=== PATIENT | male | born 1945 | race Hispanic/Latino ===

== ENCOUNTER 2017-07-13 08:23 | Inpatient (IN) | payer MEDICARE ==
[2017-07-13 08:52] VITALS: BMI 37.7
--- NOTE | 2017-07-13 09:07 | ED PDOC ---
Arrival/HPI - General Chief Complaint: Weakness/Neurological Deficit Time Seen by Provider: 07/13/17 08:59 Historian: Patient, Spouse, EMS, Other (cruise ship documentation) - History of Present Illness Narrative History of Present Illness (Text): 07/13/17 09:45 Patient is a 71 yo male presents from cruise ship for evaluation. History is supplemented by patient, his at bedside, EMS report, as well as review of provided documentation from cruise ship medical facility. states that patient has history of atrial fibrillation with ablation earlier this year, takes Xarelto. She reports that patient possibly has history of "some dementia" and has been getting evaluated by a neurologist in his hometown of [place], [place]. states that she drove with the patient from [place] to go on a cruise on June 29. She reports that the night of June 29, the patient "fell". and patient cannot describe circumstance of that fall. Patient and reported no injury. He did not go to the hospital for evaluation at that time reportedly. states that he did not pass out, and to her knowledge did not sustain any injuries at that time. They embarked on the cruise later that night and patient was "acting himself". The next day on the cruise ship, June 30, states that he had difficulty "cutting his meat" at the dining table, and he "needed help to use his knife which he usually doesn't have". She states that she did not notice any change in behavior or specific weakness at that time. States he was "walking normal" at that time. states the following day "we were sitting in one of the mineral pools" and he "had a tough time getting himself up" "which is unusual for him". She states that "the staff had to assist him with a wheelchair" to "get around the rest of the trip". states that he "fell many times" but can't describe how he fell, states that he "just goes down". states that she did not witness falls. Reportedly, she believes "Friday night", "I came back to room and he was laying on the ground and he couldn't get up." She states that he "might have been a little confused" . She states that she is uncertain how long he was on the ground for but he believes it was "all night". Patient states he has been falling but denies headache or specific weakness. Denies visual symptoms. Denies neck pain or abdominal pain. Denies dark or bloody stools. Denies palpitations. Patient reportedly was brought to the medical facility on the cruise ship on July 12 approximately 10 am. Patient reportedly was found by staff in his room with skin breakdown on right side of body and note patient to be weaker on the right sided. He was treated in medical facility of ship since yesterday with antibiotics and communicated concern for possible stroke, possible sepsis. Patient at this time denies pain or discomfort. Past Medical History - Infectious Disease Hx of Infectious Diseases: None - Cardiac Hx Atrial Fibrillation: Yes Hx Hypertension: Yes Other/Comment: Poss CHF per . - Pulmonary Hx Respiratory Disorders: No - Neurological Hx Neurological Disorder: No - HEENT Hx HEENT Disorder: No - Renal Hx Renal Disorder: No - Endocrine/Metabolic Hx Endocrine Disorders: No - Hematological/Oncological Hx Blood Disorders: No - Integumentary Hx Dermatological Disorder: No - Musculoskeletal/Rheumatological Hx Musculoskeletal Disorders: No - Gastrointestinal Hx Gastrointestinal Disorders: No - Genitourinary/Gynecological Hx Genitourinary Disorders: No - Psychiatric Hx Psychophysiologic Disorder: No Hx Substance Use: No Family/Social History Family/Social History: Unknown Family HX Smoking Status: Unknown If Ever Smoked Hx Alcohol Use: No Hx Substance Use: No Allergies/Home Meds Allergies/Adverse Reactions: Allergies nitroglycerin Allergy (Verified 07/13/17 10:55) ANGIOEDEMA Home Medications: Home Meds Medication Instructions Recorded Confirmed Amiodarone [Cordarone] 200 mg PO BID 07/13/17 07/13/17 Furosemide [Lasix] 20 mg PO DAILY 07/13/17 07/13/17 Metoprolol Tartrate [Lopressor] 25 mg PO BID 07/13/17 07/13/17 Rivaroxaban [Xarelto] 20 mg PO DAILY 07/13/17 07/13/17 Review of Systems - Review of Systems Systems not reviewed;Unavailable: Altered Mental Status Constitutional: Fatigue Eyes: absent: Vision Changes Respiratory: absent: SOB Cardiovascular: Edema. absent: Chest Pain Gastrointestinal: absent: Abdominal Pain Musculoskeletal: Other (right arm and leg pain) Neurological: Focal Weakness, Gait Changes, Facial Droop. absent: Headache, Dizziness, Speech Changes, Seizure Endocrine: absent: Polyuria Hemo/Lymphatic: absent: Easy Bleeding Physical Exam - Physical Exam Narrative Physical Exam (Text): 07/13/17 10:49 Head: Normocephalic. Right facial asymmetry with possible small contusion to right frontal scalp, no deformity or open wound noted. Eyes: Visual acuity grossly intact. Patient able to distinguish one and two fingers from 5 feet, able to track finger movements with eyes. ? limitation with lateral gaze but no orbital tenderness. Visual cote difficult to assess but appear grossly intact. Pupils equal, reactive but sluggish. ENT: Mucous membranes are dry. Oropharynx is clear and symmetric. No foregin body. No stridor. No pharyngeal erythema or edema. Neck: Supple. Full ROM. No JVD. No lymphadenopathy. No midline tenderness. No bruits auscultated. Cardiovascular: Regular rate. Regular rhythm. Systolic murmus is noted. Distal pulses in upper extremity or equal and palpable. Distal lower extremity pulses palpable. Pulmonary/Chest: No evidence of respiratory distress. Clear to auscultation bilaterally. No wheezing, rales or rhonchi. Chest wall nontender no crepitus. Abdominal: Soft but mildly distended. There is no tenderness. No rebound, guarding, or rigidity. No organomegaly palpated. No pulsatile masses. Rectal: brown heme negative stool Genitourinary: akers catheter in place Back: No CVA tenderness. There is skin edema to right lower back with erythema. No midline pain or deformity. Extremities: Patient with significant edema to right upper and lower extremities. There is large skin tear to right upper extremity. No active bleeding or foreign body. No clavicle or shoulder deformity. No bony elbow pain. No wrist deformity noted. There is edema to right lateral upper leg with blistering and erythema with soft tissue swelling, no crepitus or pus or drainage. No pain on direct palpation of hip, knee or ankle. There is bilateral leg edema noted. Skin: Edema with blistering to right lower extremity, lateral, soft tissue swelling also to right upper extremity with large skin tear. Neurological: Drowsy but easily arousable. Follows commands. Disoriented to place and time. Slow somewhat slurred speech. Weakness noted to right upper and lower extremity unable to lift off of bed. Grasp and strength appear intact to left upper extremity. No saddle anesthesia noted. Psychiatric: Poor eye contact. Flat affect. Vital Signs Reviewed: Yes Vital Signs Temp Pulse Resp BP Pulse Ox 07/13/17 12:51 98.6 F 93 H 17 106/59 L 98 07/13/17 11:53 93 H 17 106/69 98 07/13/17 08:52 98.5 F 93 H 17 113/60 98 07/13/17 08:33 98.3 F 90 24 113/60 95 Temperature: Afebrile Blood Pressure: Normal Pulse: Regular Respiratory Rate: Normal Appearance: Positive for: Ill-Appearing, Unkept Mental Status: Positive for: Confused Medical Decision Making ED Course and Treatment: 07/13/17 10:20 Patient presents to Emergency Department from [facility]. I extensively reviewed the documentation provided by [facility] and discussed the patient's history in length with patient's , who came with patient from [facility]. I also was provided some history by EMS personnel. The patient on exam is awake, answers some questions, although appears disoriented and sluggish. He is afebrile. He has no complaints although I feel due to patient's condition he is unreliable historian. Initial blood pressure is stable. Initial heart rate stable. No respiratory distress noted. He has obvious facial asymmetry, states she is not sure when this started or when this was noted. He has difficulty moving his right side, although there is skin breakdown and soft tissue swelling noted on the right sided. History is suggestive that patient was on the floor for several hours at some point recently, although states that she did find him "laying on the ground and he wouldn't get up" so she "just left him there I figured he could just spend the night on the floor". He reportedly was found by cruise staff laying on the ground, incontinent, right sided swelling, confused, and was transported to their medical facility. states they drove from [place], [place] on June 29, and patient "fell" that date. Reportedly he did not go to hospital. states "he was fine". Patient cannot describe this event to me. Since June 29, states "he was fine" but also reports that he had difficulty using utensils and walking. She states he was transported on the ship during the past two weeks "on a wheelchair" but "he was fine" although patient typically does not use a wheelchair and ambulates on his own. She denies any symptoms or illness prior to going on the cruise ship. Denies that he has been coughing, denies fevers, denies vomiting or diarrhea. She states he has "fallen many times" while on the cruise ship but she cannot describe how these events or occurring and cannot clarify what happened after each of these falls and when they occurred. She does report that he sees a neurologist in [place] for "maybe some dementia" but she states his current mental status is not typical. PROCEDURE: CT HEAD WITHOUT CONTRAST. Report Date : 07/13/2017 10:02:26 Medical Technologist Chief : Reinaldo Avila MD HISTORY:right sided weakness, on xarelto COMPARISON:None available. FINDINGS: HEMORRHAGE:No intracranial hemorrhage. BRAIN:No mass effect or edema. No atrophy or chronic microvascular ischemic changes. VENTRICLES:Unremarkable. No hydrocephalus. CALVARIUM:Unremarkable. PARANASAL SINUSES:Unremarkable as visualized. No significant inflammatory changes. MASTOID AIR CELLS:Unremarkable as visualized. No inflammatory changes. OTHER FINDINGS:None. IMPRESSION:No acute findings Limitations of CT were reviewed with patient and , I expressed my concern over multiple issues, including suspicion of underlying neurological disease including but not limited to cva, brain hemorrhage, as patient has been falling , not walking, and is weak on right side. Time of onset is unknown but he appears to have been exhibiting symptoms for two weeks. He is currently afebrile with unremarkable lactic and unremarkable WBC. When questioned, patient does answer and says he "feels fine". is not more specific on the circumstances of his falling on the cruise ship and reportedly medical attention at medical facility not obtained until July 12. He has skin breakdown suggestive of possible prolonged immobilization or time on ground. Large skin tear was cleansed and dressed in upper extremity. Patient had received iv antibiotics prior to arrival on cruise ship. and patient deny coughing, fevers, pain or discomfort. Again, I feel that he is unreliable historian although insistent that he has no cough/congestion fevers or illnesses that she noted. Influenza is positive. Precautions ordered. At this time, will admit for iv hydration given elevated CPK, rhabdomylosyis. Monitoring of renal function. Cardiac monitoring as patient with multiple falls. I discussed in laymen's terms with patient and suspicion for possible CVA, although not tpa candidate as patient with no known time of onset of symptoms and likely symptoms for several days. I have communicated with Dr. Di Mccloud, on-call physician, who accepts admission to his service and has evaluated patient in the emergency department. I have discussed case with Dr. Pierre Quijano, neurology air conditioner installer helper, and Dr. Chelly Mckenzie, ID given differential that includes infectious process/sepsis. All labs and imaging studies reviewed with patient and , need for CCU evaluation discussed with patient and family, will admit for serial exams and monitoring with consultations. 07/13/17 13:13 - Critical Care Critical Care Minutes: 30 minutes - Lab Interpretations Lab Results: 07/13/17 09:11 07/13/17 09:11 Lab Results 07/13/17 10:40: pCO2 35, pO2 77.0 L, HCO3 23.8, ABG pH 7.44, ABG Total CO2 24.9 , ABG O2 Saturation 97.2, ABG O2 Content 19.4, ABG Base Excess 0.1, ABG Hemoglobin 14.6, ABG Carboxyhemoglobin 1.6 H, POC ABG HHb (Measured) 2.7, ABG Methemoglobin 1.1, ABG O2 Capacity 20.0, Hgb O2 Saturation 94.6 L, FiO2 28.0 07/13/17 10:30: Blood Type Confirm O POSITIVE 07/13/17 09:16: Urine Color Yellow, Urine Appearance Clear, Urine pH 6.0, Ur Specific [place] >= 1.030, Urine Protein 100 H, Urine Glucose (UA) Negative, Urine Ketones 40 H, Urine Blood Large H, Urine Nitrate Negative, Urine Bilirubin Negative, Urine Urobilinogen 0.2, Ur Leukocyte Esterase Negative, Urine RBC Tntc, Urine WBC 1 - 3, Ur Epithelial Cells 1 - 3, Urine Bacteria Few 07/13/17 09:11: PT 16.7 H, INR 1.51 H, APTT 31.6 07/13/17 09:11: WBC 8.8, RBC 4.83, Hgb 14.7, Hct 43.5, MCV 90.1, MCH 30.4, MCHC 33.8, RDW 15.1 H, Plt Count 174, MPV 9.6, Gran % 78.3 H, Lymph % (Auto) 11.3 L, B[place] % (Auto) 10.1 H, Eos % (Auto) 0.1 L, Baso % (Auto) 0.2, Gran # 6.91 H, Lymph # 1.0 L, Banner # 0.9 H, Eos # 0.0, Baso # 0.02 07/13/17 09:11: Sodium 139, Chloride 106, Potassium 3.8, Carbon Dioxide 24, Anion Gap 13, BUN 26 H, Creatinine 1.1, Est GFR ( Amer) > 60, Est GFR ( Non-Af Amer) > 60, Random Glucose 101, Calcium 8.5, Magnesium 2.1, Total Bilirubin 0.9, AST 195 H, ALT 67 H, Alkaline Phosphatase 85, Lactate Dehydrogenase 1171 H, Total Creatine Kinase 9816 H, CK-MB (CK-2) 15.5 H, CK-MB ( CK-2) % 0.2 L, Troponin I 0.01, Total Protein 6.0, Albumin 3.4, Globulin 2.5, Albumin/Globulin Ratio 1.4 07/13/17 09:11: pO2 97 H, VBG pH 7.44 H, VBG pCO2 36.0 L, VBG HCO3 24.5, VBG Total CO2 25.6, VBG O2 Sat (Calc) 98.2 H, VBG Base Excess 0.6, VBG Potassium 3.7 , Sodium 137.0, Chloride 106.0, Glucose 99, Lactate 1.1, FiO2 21.0, Venous Blood Potassium 3.7 07/13/17 09:00: Blood Type O POSITIVE, Antibody Screen Negative, BBK History Checked No verified bt - RAD Interpretation Radiology Orders: 07/13/17 08:59 HEAD W/O CONTRAST [CT] Stat 07/13/17 09:00 CHEST PORTABLE [RAD] Stat 07/13/17 10:27 ELBOW RIGHT 3 VIEWS ROUTINE [RAD] Stat SHOULDER RIGHT [RAD] Stat 07/13/17 10:28 Hip Right [HIP MIN 2V W/ PELVIS RT] [RAD] Stat Preventive Maintenance Coordinator: Radiologist - EKG Interpretation EKG Interpretation (Text): EKG at 08:35 normal sinus rhythm rate of 91, left axis deviation Interpreted by ED Physician: Yes Type: 12 lead EKG - Medication Orders Current Medication Orders: Amiodarone HCl (Cordarone) 200 mg PO BID DAT Furosemide (Lasix) 40 mg IVP DAILY DAT Sodium Chloride (Sodium Chloride 0.45%) 1,000 mls @ 40 mls/hr IV .Q24H DAT Metoprolol Tartrate (Lopressor) 25 mg PO BID DAT Oseltamivir Phosphate (Tamiflu Cap) 75 mg PO BID DAT PRN Reason: Protocol Stop: 07/18/17 12:36 Rivaroxaban (Xarelto) 20 mg PO DIN DAT PRN Reason: Protocol Discontinued Medications Aspirin (Aspirin Supp) 300 mg RC STAT STA Stop: 07/13/17 10:43 Last Admin: 07/13/17 11:04 Dose: 300 mg MAR Pain/Vitals Document 07/13/17 11:04 IT (Rec: 07/13/17 11:04 IT [id number]) Pain Reassessment Is This A Pain ReAssessment? No Sleep Is patient sleeping during reassessment? No Presence of Pain Presence of Pain No Sodium Chloride (Sodium Chloride 0.9%) 1,000 mls @ 1,000 mls/hr IV .Q1H STA Stop: 07/13/17 11:21 Last Admin: 07/13/17 10:31 Dose: 1,000 mls/hr eMAR Start Stop Document 07/13/17 10:31 IT (Rec: 07/13/17 10:31 IT [id number]) Intravenous Solution Start Date 07/13/17 Start Time 10:31 End Date 07/13/17 End time 11:31 Total Infusion Time 60 Oseltamivir Phosphate (Tamiflu Cap) 75 mg PO STAT STA PRN Reason: Protocol Stop: 07/13/17 12:15 - Scribe Statement The provider has reviewed the documentation as recorded by the Omeroibluis f Blackmon Provider Scribe Attestation: All medical record entries made by the Scribe were at my direction and personally dictated by me. I have reviewed the chart and agree that the record accurately reflects my personal performance of the history, physical exam, medical decision making, and the department course for this patient. I have also personally directed, reviewed, and agree with the discharge instructions and disposition. Disposition/Present on Arrival - Present on Arrival Any Indicators Present on Arrival: No History of DVT/PE: No History of Uncontrolled Diabetes: No Urinary Catheter: No History of Decub. Ulcer: No History Surgical Site Infection Following: None - Disposition Have Diagnosis and Disposition been Completed?: Yes Diagnosis: Altered mental status, CVA (cerebral vascular accident), Right sided weakness, Multiple contusions, Abrasions of multiple sites, Rhabdomyolysis, Influenza, Multiple falls Disposition: HOSPITALIZED Disposition Time: 10:45 Patient Plan: Admission, ICU Patient Problems: Current Active Problems Problem Status Onset Abrasions of multiple sites Acute Altered mental status Acute CVA (cerebral vascular accident) Acute Influenza Acute Multiple contusions Acute Multiple falls Acute Rhabdomyolysis Acute Right sided weakness Acute Condition: CRITICAL
[2017-07-13 09:23] LABS: URINE BILIRUBIN NEGATIVE (NEGATIVE); URINE BLOOD LARGE (NEGATIVE); URINE GLUCOSE (UA) NEGATIVE (NEGATIVE); URINE KETONE 40 mg/dL (NEGATIVE); URINE LEUKOCYTE ESTERASE NEGATIVE Leu/uL (NEGATIVE); URINE PROTEIN 100 mg/dL (<30 mg/dL); URINE UROBILINOGEN 0.2 E.U./dL (<1 E.U./dL)
[2017-07-13 09:24] LABS: URINE APPEARANCE CLEAR (CLEAR); URINE COLOR YELLOW (YELLOW)
[2017-07-13 09:26] LABS: BASO # 0.02 K/mm3 (0.0-2.0); BASO % 0.2 % (0.0-3.0); EOS % 0.1 % (1.5-5.0); GRAN # 6.91 (1.4-6.5); GRAN % 78.3 % (50.0-68.0); HEMATOCRIT 43.5 % (42.0-52.0); LYMPH % 11.3 % (22.0-35.0); MEAN CELL VOLUME 90.1 fl (80.0-105.0); MEAN CORPUSCULAR HEMOGLOBIN 30.4 pg (25.0-35.0); MEAN CORPUSCULAR HGB CONC 33.8 g/dl (31.0-37.0); MEAN PLATELET VOLUME 9.6 fl (7.0-11.0); MONO # 0.9 (0.1-0.6); MONO % 10.1 % (1.0-6.0); RED CELL DISTRIBUTION WIDTH 15.1 % (11.5-14.5); WHITE BLOOD COUNT 8.8 10^3/ul (4.5-11.0)
[2017-07-13 09:27] LABS: VENOUS BLOOD GAS BASE EXCESS 0.6 mmol/L (0.0-2.0); VENOUS BLOOD PH 7.44 (7.32-7.43)
[2017-07-13 09:28] LABS: INR 1.51 (0.93-1.08); PARTIAL THROMBOPLASTIN TIME 31.6 Seconds (25.1-36.5)
[2017-07-13 09:35] LABS: ALB/GLOB RATIO 1.4 (1.1-1.8); ALKALINE PHOSPHATASE 85 U/L (38-126); ALT/SGPT 67 U/L (7-56); AST/SGOT 195 U/L (17-59); BILIRUBIN,TOTAL 0.9 mg/dL (0.2-1.3); BLOOD UREA NITROGEN 26 mg/dL (7-21); CALCIUM 8.5 mg/dL (8.4-10.5); CARBON DIOXIDE 24 mmol/L (21-33); CHLORIDE 106 mmol/L (98-107); GFR AFRICAN-AMERICAN > 60; GLUCOSE,RANDOM 101 mg/dL (70-110); MAGNESIUM 2.1 mg/dL (1.7-2.2); POTASSIUM 3.8 mmol/L (3.6-5.0); SODIUM 139 mmol/L (132-148)
[2017-07-13 09:53] LABS: URINE RBC TNTC /hpf (0-2)
[2017-07-13 09:54] LABS: TROPONIN I 0.01 ng/mL
[2017-07-13 09:55] LABS: URINE BACTERIA FEW (NEG)
--- NOTE | 2017-07-13 10:04 | CT ---
PROCEDURE: CT HEAD WITHOUT CONTRAST. HISTORY: right sided weakness, on xarelto COMPARISON: None available. TECHNIQUE: Axial computed tomography images were obtained through the head/brain without intravenous contrast. Radiation dose: Total exam DLP = 871 mGy-cm. This CT exam was performed using one or more of the following dose reduction techniques: Automated exposure control, adjustment of the mA and/or kV according to patient size, and/or use of iterative reconstruction technique. FINDINGS: HEMORRHAGE: No intracranial hemorrhage. BRAIN: No mass effect or edema. No atrophy or chronic microvascular ischemic changes. VENTRICLES: Unremarkable. No hydrocephalus. CALVARIUM: Unremarkable. PARANASAL SINUSES: Unremarkable as visualized. No significant inflammatory changes. MASTOID AIR CELLS: Unremarkable as visualized. No inflammatory changes. OTHER FINDINGS: None. IMPRESSION: No acute findings
[2017-07-13] MEDS ORDERED: Sodium Chloride 0.9% 1,000 ML IV STA (10:22)
[2017-07-13 10:48] LABS: ARTERIAL BLOOD GAS HCO3 23.8 mmol/L (21-28); ARTERIAL BLOOD GAS O2 CONTENT 19.4 ML/dl (15-23); ARTERIAL BLOOD GAS PH 7.44 (7.35-7.45); ARTERIAL BLOOD HGB O2 SAT 94.6 % (95.0-98.0); CARBOXYHEMOGLOBIN 1.6 % (0.5-1.5); HHB 2.7 % (0-5); METHEMOGLOBIN 1.1 % (0.0-3.0)
--- NOTE | 2017-07-13 10:50 | RAD ---
HISTORY: sob COMPARISON: No prior. FINDINGS: LUNGS: No active pulmonary disease. PLEURA: No significant pleural effusion identified, no pneumothorax apparent. CARDIOVASCULAR: Normal. OSSEOUS STRUCTURES: No significant abnormalities. VISUALIZED UPPER ABDOMEN: Normal. OTHER FINDINGS: None. IMPRESSION: No active disease.
[2017-07-13] MEDS ORDERED: Sodium Chloride 0.45% 1,000 ML IV SCH (12:45)
--- NOTE | 2017-07-13 14:02 | RAD ---
PROCEDURE: Radiographs of the Right Shoulder HISTORY: shoulder pain after fall COMPARISON: No prior. FINDINGS: BONES: Normal. No fracture. JOINTS: Normal. Glenohumeral and acromioclavicular joints preserved. No osteoarthritis. SOFT TISSUES: Normal. OTHER FINDINGS: None. IMPRESSION: Normal radiographs of the right shoulder.
--- NOTE | 2017-07-13 14:03 | RAD ---
PROCEDURE: Radiographs of the right elbow. HISTORY: arm pain after fall COMPARISON: No prior. FINDINGS: BONES: Normal. No fracture. JOINTS: Normal. No osteoarthritis. SOFT TISSUES: Normal. JOINT EFFUSION: None. OTHER FINDINGS: None. IMPRESSION: Unremarkable radiographs of the right elbow.
--- NOTE | 2017-07-13 14:04 | RAD ---
PROCEDURE: Right Hip and pelvis Radiographs. HISTORY: hip pain after fall COMPARISON: None. FINDINGS: BONES: Normal. No fracture. JOINTS: Normal. SOFT TISSUES: Normal. OTHER FINDINGS: None. IMPRESSION: Negative study
[2017-07-13] MEDS ORDERED: Sodium Chloride 0.9% 1,000 ML IV SCH (17:15)
[2017-07-13 18:01] LABS: ALB/GLOB RATIO 1.3 (1.1-1.8); ALKALINE PHOSPHATASE 88 U/L (38-126); ALT/SGPT 65 U/L (7-56); AST/SGOT 208 U/L (17-59); BILIRUBIN,TOTAL 0.9 mg/dL (0.2-1.3); BLOOD UREA NITROGEN 24 mg/dL (7-21); CALCIUM 8.5 mg/dL (8.4-10.5); CARBON DIOXIDE 27 mmol/L (21-33); CHLORIDE 103 mmol/L (98-107); GFR AFRICAN-AMERICAN > 60; GLUCOSE,RANDOM 89 mg/dL (70-110); POTASSIUM 3.8 mmol/L (3.6-5.0); SODIUM 140 mmol/L (132-148); TOTAL PROTEIN 6.3 g/dL (5.8-8.3)
--- NOTE | 2017-07-13 20:56 | CARD ---
APPROVED REPORT EKG Measurement Heart [id number] <Conclusion> Normal sinus rhythm Left axis deviation Abnormal ECG
--- NOTE | 2017-07-13 23:13 | CON ---
SPORTS TEAM MANAGER CONSULT DATE: 07/13/2017 REQUESTING PHYSICIAN: Dr. Stewart CHIEF COMPLAINT: The patient was found with altered mental status, possible CVA, and frequent falls. HISTORY OF PRESENT ILLNESS: Mr. Davis is a 71-year-old male, who was on a cruise ship and has a past history of cardiac disease, atrial fibrillation, status post ablation several years ago. The patient has a possible history of congestive heart failure. It was noted that the patient may have a history of dementia as well and was being evaluated by a neurologist. The patient was on a cruise ship and had several episodes of falling. At one point, he developed weakness and needed a wheelchair while on the cruise ship. The patient was found in his stateroom on the floor and at that time, was taken to the medical area. He was evaluated and it seemed as though he had right-sided weakness as well as a facial droop. The patient also had ecchymotic areas on his hip and legs on the right side as well as skin breakdown on his right arm. The patient complains of pain in his right shoulder and along the right side as well. There is a significant swelling. No fever, chills. No nausea or vomiting. The patient is confused, but awake, and responds to the spoken words. Hemodynamically at this time he is stable. PAST MEDICAL HISTORY: As above. ALLERGIES: HE HAS NO KNOWN ALLERGIES. CURRENT MEDICATIONS: Can be evaluated as per the nurses' intake form. SOCIAL HISTORY: He has no history of alcohol abuse or substance abuse and smoking is unknown. FAMILY HISTORY: Noncontributory. REVIEW OF SYSTEMS: CONSTITUTIONAL: The patient does have some altered mental status at times as well as fatigue. HEENT: Within normal limits. RESPIRATORY: No shortness of breath. CARDIOVASCULAR: Does have generalized edema, but no chest pain. GASTROINTESTINAL: All negative. MUSCULOSKELETAL: He does have some right arm and right leg pain. NEUROLOGICAL: He has facial weakness and drooping on the right side. He does have weakness on the right side as well, upper and lower extremity. ENDOCRINE: All negative. HEMATOLOGIC: All negative. IMMUNOLOGICAL: Negative. INTEGUMENTARY: The patient does have skin breakdown as well as areas of ecchymosis. PHYSICAL EXAMINATION: VITAL SIGNS: His temperature is 98.5, his pulse is 93, respirations are 17, and BP is 113/60, O2 saturation on room air is 98%. HEAD: Atraumatic, normocephalic. Eyes: Reactive to light. EARS, NOSE, AND THROAT: Seemed to be within normal limits. NECK: Supple. No JVD. No thyroid enlargement. No lymph nodes. HEART: Regular rate and rhythm. Normal S1, S2. LUNGS: Reveals good breath sounds bilaterally. ABDOMEN: Soft. Decreased bowel sounds. GENITALIA: Deferred. RECTAL: Deferred. MUSCULOSKELETAL: Note that the patient has a painful right shoulder, x-rays are pending, seems to be somewhat swollen. The patient also has a skin breakdown on the right arm. He has pain in his right lower extremity with ecchymosis in the area of the hip and he has generalized edema, upper and lower extremities. NEUROLOGICAL: The patient has weakness in his right upper and lower extremities and right facial droop. LABORATORY DATA: As far as the laboratories, his white count is 8.8, hemoglobin 14.7, hematocrit 43.5 with platelets of 174,000. Sodium is 139, potassium 3.8, chloride 106, CO2 of 24, BUN of 26, creatinine of 1.1 and glucose of 101. The patient's LDH is 1171 with CK of 9816. The patient's troponin is normal. Note, the patient is on Xarelto and the INR is 1.51. PT is 16.7. His chest x-ray reveals that there are no acute changes and his CT of his head shows no acute disease as well. The patient is scheduled for an MRI. The patient had x-rays of his right hip as well as his right shoulder and arm; results are pending. IMPRESSION: This patient has possible cerebrovascular accident with right-sided weakness, has anasarca and generalized edema, the patient had recent frequent falling and altered mental status. He has rhabdomyolysis with increased CPK and is noted to have painful right shoulder, right hip and has several areas of skin breakdown as well as ecchymosis secondary to falling. The patient has a questionable history of dementia, but does have a history of congestive heart failure, atrial fibrillation, and had a cardiac ablation in the past for the atrial fibrillation. It is noted that he is positive for influenza and ID consult has been called. As far as our plan, the patient is scheduled for MRI. He is getting neuro checks and has been admitted to the intensive care unit. The patient has a consult with Neurology, Infectious Disease, and at this time is getting IV fluids. The patient is also continuing on his amiodarone. He is getting Lasix as well as his Lopressor. The patient has been started on Tamiflu and is being continued on his Xarelto. We will continue to follow closely and observe and treat aggressively along with other consultants and primary care doctor. Thom Ogden MD
[2017-07-14 06:17] LABS: HEMATOCRIT 42.1 % (42.0-52.0); MEAN CELL VOLUME 90.5 fl (80.0-105.0); MEAN CORPUSCULAR HEMOGLOBIN 30.3 pg (25.0-35.0); MEAN CORPUSCULAR HGB CONC 33.5 g/dl (31.0-37.0); MEAN PLATELET VOLUME 9.3 fl (7.0-11.0); RED CELL DISTRIBUTION WIDTH 14.9 % (11.5-14.5); WHITE BLOOD COUNT 8.5 10^3/ul (4.5-11.0)
[2017-07-14 06:50] LABS: ALB/GLOB RATIO 1.2 (1.1-1.8); ALKALINE PHOSPHATASE 77 U/L (38-126); ALT/SGPT 65 U/L (7-56); AST/SGOT 194 U/L (17-59); BILIRUBIN,TOTAL 0.9 mg/dL (0.2-1.3); BLOOD UREA NITROGEN 23 mg/dL (7-21); CALCIUM 8.3 mg/dL (8.4-10.5); CARBON DIOXIDE 27 mmol/L (21-33); CHLORIDE 105 mmol/L (98-107); CHOLESTEROL 133 mg/dL (130-200); GFR AFRICAN-AMERICAN > 60; GLUCOSE,RANDOM 94 mg/dL (70-110); POTASSIUM 3.8 mmol/L (3.6-5.0); SODIUM 140 mmol/L (132-148); TOTAL PROTEIN 5.9 g/dL (5.8-8.3)
--- NOTE | 2017-07-14 07:50 | CP.CCUPN ---
<Robbin Jackson - Last Filed: 07/14/17 10:36> CCU Subjective - Physician Review Subjective (Free Text): 07/14/17 07:45 Robbin Jackson D.O. PGY-2, Critical Care Progress Note 71 year old male with a PMH of CAD, A-fib s/p ablation and questionable CHF who presented to [facility] [place] a cruise ship for recurrent falls and suspected CVA. Patient was seen and examined at bedside. Patient is somewhat alert, able to answer questions appropriately although at times they need to be repeated. Patient at this time denies any acute complaints other than continued generalized swelling of his extremities. No acute overnight events per nursing staff. CCU Objective - Vital Signs / Intake & Output Vital Signs (Last 4 hours): Vital Signs Temp Pulse Resp BP Pulse Ox 07/14/17 06:40 92 H 25 H 96 07/14/17 06:30 91 H 29 H 98 07/14/17 06:20 89 28 H 100 07/14/17 06:10 87 25 H 100 07/14/17 06:00 90 26 H 127/72 95 07/14/17 05:50 81 L 07/14/17 05:40 88 27 H 97 07/14/17 05:30 87 23 98 07/14/17 05:20 85 24 98 07/14/17 05:10 88 24 98 07/14/17 05:00 87 24 139/72 80 L 07/14/17 04:50 86 24 98 07/14/17 04:40 85 23 98 07/14/17 04:30 88 24 98 07/14/17 04:20 94 H 18 97 07/14/17 04:10 91 H 31 H 96 07/14/17 04:00 97.8 F 89 13 95 07/14/17 03:50 84 25 H 98 Intake and Output (Last 8hrs): Intake & Output 07/13/17 07/14/17 07/14/17 22:59 06:59 14:59 Intake Total 400 1200 Output Total 2500 500 Balance -2100 700 Weight 138.074 kg Intake: IV 200 1200 Right Hand 200 1200 Oral 200 Output: Urine 2500 500 Urethral (Akers) 2500 500 Other: # Bowel Movements 0 - Physical Exam Head: Positive for: Atraumatic, Normocephalic Pupils: Positive for: PERRL Extroacular Muscles: Positive for: EOMI Conjunctiva: Positive for: Normal Ears: Positive for: Normal Mouth: Positive for: Moist Mucous Membranes Pharnyx: Positive for: Normal Nose (External): Positive for: Atraumatic Neck: Positive for: Trachea Midline Respiratory/Chest: Positive for: Clear to Auscultation, Good Air Exchange. Negative for: Respiratory Distress, Wheezes, Rales, Rhonchi Cardiovascular: Positive for: Regular Rate and Rhythm, Normal S1, S2. Negative for: Murmurs, Rub, Gallop Abdomen: Positive for: Normal Bowel Sounds. Negative for: Tenderness, Distention, Peritoneal Signs Genitourinary Male: Positive for: Other (akers in place with clear yellow urine) Upper Extremity: Positive for: Edema (+2), Swelling. Negative for: Tenderness Lower Extremity: Positive for: Edema (+3), Swelling. Negative for: CALF TENDERNESS Neurological: Positive for: Other (AAOx4, at times appears confused, follows simple and complex commands, L camera operator/bi/tri/delt/hf/kf/pf/df/ehl 5/5, R Camera Supervisor/BI/ PF/DF/EHL 4/5, TRI/HF/KF 3/5) Skin: Positive for: Warm, Dry - Medications Active Medications: Active Medications Generic Name Dose Route Start Last Admin Trade Name Freq PRN Reason Stop Dose Admin Amiodarone HCl 200 mg 07/13/17 18:00 07/13/17 18:05 Cordarone PO 200 mg BID DAT Administration Atorvastatin Calcium 80 mg 07/14/17 17:00 Lipitor PO DIN DAT Furosemide 40 mg 07/13/17 12:45 07/13/17 13:27 Lasix IVP 40 mg DAILY DAT Administration Sodium Chloride 1,000 mls @ 100 mls/hr 07/13/17 17:15 07/13/17 18:04 Sodium Chloride 0.9% IV 100 mls/hr .Q10H DAT Administration Metoprolol Tartrate 25 mg 07/13/17 18:00 07/13/17 18:01 Lopressor PO 25 mg BID DAT Administration Oseltamivir Phosphate 75 mg 07/13/17 18:00 07/13/17 18:01 Tamiflu Cap PO 07/18/17 12:36 75 mg BID DAT Administration Protocol Rivaroxaban 20 mg 07/14/17 17:00 Xarelto PO DIN [facility] Protocol - Patient Studies Lab Studies: Lab Studies 07/14/17 07/14/17 07/13/17 Range/Units 05:20 05:20 17:16 WBC 8.5 (4.5-11.0) 10^3/ul RBC 4.65 (3.5-6.1) 10^6/uL Hgb 14.1 (14.0-18.0) g/dL Hct 42.1 (42.0-52.0) % MCV 90.5 (80.0-105.0) fl MCH 30.3 (25.0-35.0) pg MCHC 33.5 (31.0-37.0) g/dl RDW 14.9 H (11.5-14.5) % Plt Count 158 (120.0-450.0) 10^3/uL MPV 9.3 (7.0-11.0) fl Sodium 140 140 (132-148) mmol/L Potassium 3.8 3.8 (3.6-5.0) mmol/L Chloride 105 103 (98-107) mmol/L Carbon Dioxide 27 27 (21-33) mmol/L Anion Gap 12 14 (10-20) BUN 23 H 24 H (7-21) mg/dL Creatinine 0.9 1.1 (0.8-1.5) mg/dL Est GFR ( Amer) > 60 > 60 Est GFR (Non-Af Amer) > 60 > 60 Random Glucose 94 89 (70-110) mg/dL Calcium 8.3 L 8.5 (8.4-10.5) mg/dL Total Bilirubin 0.9 0.9 (0.2-1.3) mg/dL AST 194 H 208 H (17-59) U/L ALT 65 H 65 H (7-56) U/L Alkaline Phosphatase 77 88 (38-126) U/L Total Creatine Kinase 9745 H (35-230) U/L CK-MB (CK-2) 11.7 H (0.0-3.6) ng/mL CK-MB (CK-2) % 0.1 L (2.5-3.0) % Total Protein 5.9 6.3 (5.8-8.3) g/dL Albumin 3.2 3.6 (3.0-4.8) g/dL Globulin 2.7 2.7 gm/dL Albumin/Globulin Ratio 1.2 1.3 (1.1-1.8) Triglycerides 101 (35-160) mg/dL Cholesterol 133 (130-200) mg/dL LDL Cholesterol Direct 57 (0-129) mg/dL HDL Cholesterol 46 (29-60) mg/dL Influenza Typ A,B (EIA) (NEGATIVE) 07/13/17 Range/Units 11:25 WBC (4.5-11.0) 10^3/ul RBC (3.5-6.1) 10^6/uL Hgb (14.0-18.0) g/dL Hct (42.0-52.0) % MCV (80.0-105.0) fl MCH (25.0-35.0) pg MCHC (31.0-37.0) g/dl RDW (11.5-14.5) % Plt Count (120.0-450.0) 10^3/uL MPV (7.0-11.0) fl Sodium (132-148) mmol/L Potassium (3.6-5.0) mmol/L Chloride (98-107) mmol/L Carbon Dioxide (21-33) mmol/L Anion Gap (10-20) BUN (7-21) mg/dL Creatinine (0.8-1.5) mg/dL Est GFR ( Amer) Est GFR (Non-Af Amer) Random Glucose (70-110) mg/dL Calcium (8.4-10.5) mg/dL Total Bilirubin (0.2-1.3) mg/dL AST (17-59) U/L ALT (7-56) U/L Alkaline Phosphatase (38-126) U/L Total Creatine Kinase (35-230) U/L CK-MB (CK-2) (0.0-3.6) ng/mL CK-MB (CK-2) % (2.5-3.0) % Total Protein (5.8-8.3) g/dL Albumin (3.0-4.8) g/dL Globulin gm/dL Albumin/Globulin Ratio (1.1-1.8) Triglycerides (35-160) mg/dL Cholesterol (130-200) mg/dL LDL Cholesterol Direct (0-129) mg/dL HDL Cholesterol (29-60) mg/dL Influenza Typ A,B (EIA) Pos for influenza a H (NEGATIVE) Laboratory Results - last 24 hr 07/13/17 07/13/17 07/14/17 11:25 17:16 05:20 WBC RBC Hgb Hct MCV MCH MCHC RDW Plt Count MPV Sodium 140 140 Potassium 3.8 3.8 Chloride 103 105 Carbon Dioxide 27 27 Anion Gap 14 12 BUN 24 H 23 H Creatinine 1.1 0.9 Est GFR ( Amer) > 60 > 60 Est GFR (Non-Af Amer) > 60 > 60 Random Glucose 89 94 Calcium 8.5 8.3 L Total Bilirubin 0.9 0.9 AST 208 H 194 H ALT 65 H 65 H Alkaline Phosphatase 88 77 Total Creatine Kinase 9745 H CK-MB (CK-2) 11.7 H CK-MB (CK-2) % 0.1 L Total Protein 6.3 5.9 Albumin 3.6 3.2 Globulin 2.7 2.7 Albumin/Globulin Ratio 1.3 1.2 Triglycerides 101 Cholesterol 133 LDL Cholesterol Direct 57 HDL Cholesterol 46 Influenza Typ A,B (EIA) Pos for influenza a H 07/14/17 05:20 WBC 8.5 RBC 4.65 Hgb 14.1 Hct 42.1 MCV 90.5 MCH 30.3 MCHC 33.5 RDW 14.9 H Plt Count 158 MPV 9.3 Sodium Potassium Chloride Carbon Dioxide Anion Gap BUN Creatinine Est GFR ( Amer) Est GFR (Non-Af Amer) Random Glucose Calcium Total Bilirubin AST ALT Alkaline Phosphatase Total Creatine Kinase CK-MB (CK-2) CK-MB (CK-2) % Total Protein Albumin Globulin Albumin/Globulin Ratio Triglycerides Cholesterol LDL Cholesterol Direct HDL Cholesterol Influenza Typ A,B (EIA) Review of Systems - Review of Systems All systems: reviewed and no additional remarkable complaints except (as in HPI) Critical Care Progress Note - Nutrition Nutrition: Nutrition Category Date Time Status NPO Diet [DIET] Diets 07/13/17 Dinner Ordered Assessment/Plan - Assessment and Plan (Free Text) Assessment: 71 year old male with a PMH of CAD, A-fib s/p ablation and questionable CHF who presented [place] [facility] [place] cruise [place] for recurrent falls and suspected CVA. Plan: 1. CVA with right sided weakness Neuro Dr. Quijano following, recs appreciated Head CT negative for acute pathology, MRI pending as well as carotid/vert doppler Started on ASA 81 On Xarelto for A-fib Echo ordered PT consulted Swallow eval today, NPO at this time 2. Influenza On tamiflu day [address] Mckenzie following, recs appreciated Pulm Dr. De La Rosa following, recs appreciated Satting well on RA, cont to monitor 3. Rhabdomyolysis CPK downtreding, today's pending Cont IVF Monitoring renal function 4. CAD with atrial fibrillation s/p ablation Cont home metoprolol, amiodarone, lipitor, and Xarelto Started ASA [address] Schwartz consulted 5. Recurrent falls Likely 2/ #1 Elbow, shoulder, hip/pelvis Xrays all negative Wound care consulted 6. LE swelling LE dopplers pending DVT ppx: SCDs Patient was seen and examined and case was discussed at length with attending physician. - Date & Time Date: 07/14/17 Time: 09:30 <Hernesto Thomason - Last Filed: 07/14/17 13:10> CCU Objective - Vital Signs / Intake & Output Vital Signs (Last 4 hours): Vital Signs Pulse BP 07/14/17 10:00 81 07/14/17 09:17 86 118/63 07/14/17 09:16 86 118/63 Intake and Output (Last 8hrs): Intake & Output 07/13/17 07/14/17 07/14/17 22:59 06:59 14:59 Intake Total 400 1200 Output Total 2500 500 Balance -2100 700 Weight 304 lb 6.4 oz 308 lb Intake: IV 200 1200 Right Hand 200 1200 Oral 200 Output: Urine 2500 500 Urethral (Akers) 2500 500 Other: # Bowel Movements 0 - Medications Active Medications: Active Medications Generic Name Dose Route Start Last Admin Trade Name Freq PRN Reason Stop Dose Admin Amiodarone HCl 200 mg 07/13/17 18:00 07/14/17 09:16 Cordarone PO 200 mg BID DAT Administration Aspirin 81 mg 07/14/17 10:00 07/14/17 09:17 Ecotrin PO 81 mg DAILY DAT Administration Atorvastatin Calcium 80 mg 07/14/17 17:00 Lipitor PO DIN DAT Sodium Chloride 1,000 mls @ 125 mls/hr 07/14/17 10:52 Sodium Chloride 0.9% IV .Q8H [facility] Metoprolol Tartrate 25 mg 07/13/17 18:00 07/14/17 09:17 Lopressor PO 25 mg BID DAT Administration Oseltamivir Phosphate 75 mg 07/13/17 18:00 07/14/17 09:17 Tamiflu Cap PO 07/18/17 12:36 75 mg BID DAT Administration Protocol Rivaroxaban 20 mg 07/14/17 17:00 Xarelto PO DIN [facility] Protocol - Patient Studies Lab Studies: Lab Studies 07/14/17 07/14/17 07/14/17 Range/Units 11:00 06:00 05:20 WBC 8.5 (4.5-11.0) 10^3/ul RBC 4.65 (3.5-6.1) 10^6/uL Hgb 14.1 (14.0-18.0) g/dL Hct 42.1 (42.0-52.0) % MCV 90.5 (80.0-105.0) fl MCH 30.3 (25.0-35.0) pg MCHC 33.5 (31.0-37.0) g/dl RDW 14.9 H (11.5-14.5) % Plt Count 158 (120.0-450.0) 10^3/uL MPV 9.3 (7.0-11.0) fl Sodium (132-148) mmol/L Potassium (3.6-5.0) mmol/L Chloride (98-107) mmol/L Carbon Dioxide (21-33) mmol/L Anion Gap (10-20) BUN (7-21) mg/dL Creatinine (0.8-1.5) mg/dL Est GFR ( Amer) Est GFR (Non-Af Amer) Random Glucose (70-110) mg/dL Calcium (8.4-10.5) mg/dL Total Bilirubin (0.2-1.3) mg/dL AST (17-59) U/L ALT (7-56) U/L Alkaline Phosphatase (38-126) U/L Total Creatine Kinase 7001 H (35-230) U/L CK-MB (CK-2) 5.3 H (0.0-3.6) ng/mL CK-MB (CK-2) % 0.1 L (2.5-3.0) % Total Protein (5.8-8.3) g/dL Albumin (3.0-4.8) g/dL Globulin gm/dL Albumin/Globulin Ratio (1.1-1.8) Triglycerides (35-160) mg/dL Cholesterol (130-200) mg/dL LDL Cholesterol Direct (0-129) mg/dL HDL Cholesterol (29-60) mg/dL Hepatitis A IgM Ab (NEGATIVE) Hep Bs Antigen (NEGATIVE) Hep B Core IgM Ab (NEGATIVE) Hepatitis C Antibody (NEGATIVE) Ur L.pneumophila Ag Negative (NEGATIVE) 07/14/17 07/13/17 07/13/17 Range/Units 05:20 17:16 13:50 WBC (4.5-11.0) 10^3/ul RBC (3.5-6.1) 10^6/uL Hgb (14.0-18.0) g/dL Hct (42.0-52.0) % MCV (80.0-105.0) fl MCH (25.0-35.0) pg MCHC (31.0-37.0) g/dl RDW (11.5-14.5) % Plt Count (120.0-450.0) 10^3/uL MPV (7.0-11.0) fl Sodium 140 140 (132-148) mmol/L Potassium 3.8 3.8 (3.6-5.0) mmol/L Chloride 105 103 (98-107) mmol/L Carbon Dioxide 27 27 (21-33) mmol/L Anion Gap 12 14 (10-20) BUN 23 H 24 H (7-21) mg/dL Creatinine 0.9 1.1 (0.8-1.5) mg/dL Est GFR ( Amer) > 60 > 60 Est GFR (Non-Af Amer) > 60 > 60 Random Glucose 94 89 (70-110) mg/dL Calcium 8.3 L 8.5 (8.4-10.5) mg/dL Total Bilirubin 0.9 0.9 (0.2-1.3) mg/dL AST 194 H 208 H (17-59) U/L ALT 65 H 65 H (7-56) U/L Alkaline Phosphatase 77 88 (38-126) U/L Total Creatine Kinase 9745 H (35-230) U/L CK-MB (CK-2) 11.7 H (0.0-3.6) ng/mL CK-MB (CK-2) % 0.1 L (2.5-3.0) % Total Protein 5.9 6.3 (5.8-8.3) g/dL Albumin 3.2 3.6 (3.0-4.8) g/dL Globulin 2.7 2.7 gm/dL Albumin/Globulin Ratio 1.2 1.3 (1.1-1.8) Triglycerides 101 (35-160) mg/dL Cholesterol 133 (130-200) mg/dL LDL Cholesterol Direct 57 (0-129) mg/dL HDL Cholesterol 46 (29-60) mg/dL Hepatitis A IgM Ab Negative (NEGATIVE) Hep Bs Antigen Negative (NEGATIVE) Hep B Core IgM Ab Negative (NEGATIVE) Hepatitis C Antibody Negative (NEGATIVE) Ur L.pneumophila Ag (NEGATIVE) Laboratory Results - last 24 hr 07/13/17 07/13/17 07/14/17 13:50 17:16 05:20 WBC RBC Hgb Hct MCV MCH MCHC RDW Plt Count MPV Sodium 140 140 Potassium 3.8 3.8 Chloride 103 105 Carbon Dioxide 27 27 Anion Gap 14 12 BUN 24 H 23 H Creatinine 1.1 0.9 Est GFR ( Amer) > 60 > 60 Est GFR (Non-Af Amer) > 60 > 60 Random Glucose 89 94 Calcium 8.5 8.3 L Total Bilirubin 0.9 0.9 AST 208 H 194 H ALT 65 H 65 H Alkaline Phosphatase 88 77 Total Creatine Kinase 9745 H CK-MB (CK-2) 11.7 H CK-MB (CK-2) % 0.1 L Total Protein 6.3 5.9 Albumin 3.6 3.2 Globulin 2.7 2.7 Albumin/Globulin Ratio 1.3 1.2 Triglycerides 101 Cholesterol 133 LDL Cholesterol Direct 57 HDL Cholesterol 46 Hepatitis A IgM Ab Negative Hep Bs Antigen Negative Hep B Core IgM Ab Negative Hepatitis C Antibody Negative Ur L.pneumophila Ag 07/14/17 07/14/17 07/14/17 05:20 06:00 11:00 WBC 8.5 RBC 4.65 Hgb 14.1 Hct 42.1 MCV 90.5 MCH 30.3 MCHC 33.5 RDW 14.9 H Plt Count 158 MPV 9.3 Sodium Potassium Chloride Carbon Dioxide Anion Gap BUN Creatinine Est GFR ( Amer) Est GFR (Non-Af Amer) Random Glucose Calcium Total Bilirubin AST ALT Alkaline Phosphatase Total Creatine Kinase 7001 H CK-MB (CK-2) 5.3 H CK-MB (CK-2) % 0.1 L Total Protein Albumin Globulin Albumin/Globulin Ratio Triglycerides Cholesterol LDL Cholesterol Direct HDL Cholesterol Hepatitis A IgM Ab Hep Bs Antigen Hep B Core IgM Ab Hepatitis C Antibody Ur L.pneumophila Ag Negative Critical Care Progress Note - Nutrition Nutrition: Nutrition Category Date Time Status NPO Diet [DIET] Diets 07/13/17 Dinner Ordered Assessment/Plan - Assessment and Plan (Free Text) Plan: Patient seen and examined, on rounds, case discussed with resident, agree with note, with following additions/exceptions: Patient is 71 year old male with a PMH of CAD, A-fib s/p ablation on Xarelto, and questionable CHF who presented to [facility] [place] cruise [place] for recurrent falls, rhabdo, and possible CVA. Currently the patient is AAoX3, NAD , comfortable with no major complaints. Pt has R sided weakness, RUE 3/5, RLE 3/ 5, initial CTH neg for acute CVA, MRI pending. Labs show improving rhabdo, renal function stable, CPK downtreding ?Acute CVA Rhabdo Afib on A/C Recurrent Falls CAD Flu/Influenza Recommend: - supp O2 as needed - Tamiflu 75mg BID x 5 days, follow up ID - Xarelto, Rate control - ASA - ECHO - follow up MRI - PT eval - speech and swallow eval - increase IVF rate - DC Lasix - GI ppx - DVT ppx, Xarelto - OOB to chair - DC akers - resume diet if passes speech/swallow critical care time 40 minutes
--- NOTE | 2017-07-14 08:17 | CON ---
NEUROLOGY CONSULTATION REPORT DATE: 07/13/2017 REASON FOR CONSULTATION: Cerebrovascular accident. HISTORY OF PRESENT ILLNESS: The patient is a [id number] who has been asked for evaluation of cerebrovascular accident. The patient was brought in from cruise ship. The patient is originally from [place] and he went to cruise on a 06/29/2017 as per . The patient fell the night of 06/29/2017. There was no injury. He started the cruise on 06/30/2017. On 06/30/2017, the noted that the patient was having difficulty cutting his meat at the dining table, needed help with his knife. There was no change in behavior. He apparently fell many times while he was in the cruise ship. Two days ago when the patient's came back to room, he was lying on the ground and uncertain how long he was on the ground. The patient was brought to the medical facility on the cruise ship on 07/12/2017 because he was noted to be weak on the right side. He continues to be weak on the right side and that is why he was brought directly from the cruise ship to the hospital. PAST MEDICAL HISTORY: Includes atrial fibrillation and hypertension. MEDICATIONS AT HOME: Included Xarelto, Lopressor, Lasix, and Cordarone. FAMILY HISTORY: Noncontributory to the case. SOCIAL HISTORY: Denies smoking, use of alcohol, or illicit drugs. REVIEW OF SYSTEMS: Denies any headache, dizziness, chest pain, shortness of breath, abdominal pain, constipation, diarrhea, dysuria, cough, sputum production, or hallucinations. PHYSICAL EXAMINATION: GENERAL: The patient is an elderly male, lying in the bed, and in no acute distress. VITAL SIGNS: Blood pressure is 117/70, heart rate is 87 per minute, breathing at the rate of 18 per minute, and temperature is 98.7 degrees Fahrenheit. HEENT: Head is normocephalic and atraumatic. NECK: Supple. There are no carotid bruits. LUNGS: Clear. CARDIOVASCULAR: S1 and S2 audible. No murmurs. ABDOMEN: Soft and nontender with bowel sounds present. NEUROLOGIC: Mental status: The patient is awake, alert, and oriented to time, place, and person. Speech is fluent. He follows simple commands. Cranial nerve examination: Pupils are 3 mm bilaterally reactive to light. Visual cote are full. Extraocular movements are intact. There is mild decrease in the nasolabial fold on the right side. Tongue is midline. Motor examination: Tone is normal. There is right hemiparesis. His power in the right upper extremity is about 2-3/5 and power in the right lower extremity is 2/5. Reflexes are 1+ and symmetrical. Plantars are downgoing bilaterally. Cerebellar examination: Alldko-jf-fmid shows no dysmetria on the left side. Sensory examination: There is decreased sensation to the soft touch on the right side. LABORATORY DATA: Labs reviewed shows WBC of 8.8, hemoglobin 14.7, hematocrit of 43.5, and platelets of 174. Sodium is 140, potassium 3.8, chloride of 103, carbon dioxide 27, BUN of 24, creatinine of 1.1, and glucose of 89. He had a CT scan of the head done, which shows no acute intracranial pathology. IMPRESSION: 1. Cerebrovascular accident with right hemiparesis. 2. History of atrial fibrillation. RECOMMENDATIONS: 1. The patient to have MRI of the brain without contrast. 2. The patient also to have carotid Doppler studies. 3. The patient to have an echocardiogram. 4. The patient to have physical therapy and speech therapy evaluation. 5. The patient was on Xarelto for underlying atrial fibrillation. Consider changing anticoagulant to a different anticoagulant. 6. The patient was not a candidate for tPA administration because he was out of time window. 7. Please continue supportive care and other treatment. Thank you for the opportunity to participate in the care of this patient. Aileen Quijano MD
--- NOTE | 2017-07-14 08:39 | HP ---
HISTORY OF PRESENT ILLNESS: I saw him in the intensive care unit. He is definitely a little bit weak and mentally off and out of it, a little bit confused. He has a very interesting history. He is a 71-year-old white male from [place] cruise ship with most of the history given to the ER doctor by the . The was not there when I got there and he was not a good historian. He has a history of atrial fibrillation with ablation early in the year. He takes Xarelto, some dementia, but he is not 100% sure. He was seeing a neurologist in [place], [place]. They were doing a cruise ship. The really could not describe all the circumstances of the fall, but he was on the ground for 24 hours. There were some injuries. Sometimes he did things okay, sometimes he was out of it mentally. He is a very poor historian and now he is in [facility], out of it in bed. Possibly might have had a stroke. PAST MEDICAL HISTORY: He has a past medical history of atrial fibrillation, hypertension, CHF, and change in mentation. SOCIAL HISTORY: No smoking, no drugs, and no alcohol. ALLERGIES: NO KNOWN DRUG ALLERGIES. MEDICATIONS: He takes Cordarone, Lasix, Lopressor, and Xarelto. REVIEW OF SYSTEMS: He has altered mental status. No acute vision changes or hearing changes. No shortness of breath. He has lots of swelling in the extremities. No abdominal pain. His extremities are sore from being on the floor for 24 hours. I understands he is very weak. Questionable facial droop. PHYSICAL EXAMINATION: VITAL SIGNS: He has a 98.5 temperature, 93 pulse, 17 respiratory rate, 113/60 blood pressure, 98% on O2 saturation on room air. HEENT: His head is atraumatic and normocephalic. Extraocular muscles intact. Throat is dry. NECK: Supple. No JVD. HEART: Regular rate. Normal S1 and S2. LUNGS: Decreased breath sounds, poor inspiration but clear to auscultation. No wheezing, no rhonchi, and no rales. ABDOMEN: Soft and nontender. Positive bowel sounds. No guarding, no rebound, no CVA tenderness. EXTREMITIES: A +1 to 2 pitting edema SKIN: He has bruises. No apparent breakdown that I could tell. NEUROLOGIC: He is alert, but poor historian. Does not know where he is. Not anxious, not depressed, just lethargic. LABORATORY DATA: He had multiple tests done. CT scan of the head was normal. Chest x-ray was normal. He had lab tests. He has a 8.8 white count, 14.7 hemoglobin, 43.5 hematocrit, with 174 platelets. INR is 1.51. He has a 139 sodium, potassium 3.8, BUN 26, creatinine 1.1, GFR is greater than 60, sugar is 101, calcium is 8.5, magnesium 2.1, total bilirubin is 0.9, AST is 195, ALT is 67, alkaline phosphatase is 85, lactate dehydrogenase is 1171, total creatine kinase is 9816. Troponin I is 0.01, total protein 6. Urine has large blood, not sure why, could be the Coon catheter. He has positive influenza. ASSESSMENT AND PLAN: We are going to have consults with Neurology, Cardiology, Infectious Disease, and Pulmonary. We are going to watch him very closely. IV Lasix, IV fluids, Tamiflu as medications. We will check the labs tomorrow. Continue with physical therapy. Alejo Mccloud DO MTDD
--- NOTE | 2017-07-14 09:41 | CON ---
DATE: 07/13/2017 LOCATION: The patient seen in the ICU 129 and CCU 129, bed 3. CHIEF COMPLAINT: Weakness. Infectious Disease consultation called for aggressive and positive influenza serology x1 day. HISTORY OF PRESENT ILLNESS: This is a 71-year-old male who has obesity with a BMI of 37 with hypertension, atrial fibrillation, and early dementia. The patient has atrial fibrillation, status post ablation, on Xarelto, had gone on a cruise. The patient's states that the patient had not been feeling well going to the cruise and he had multiple falls, etiology of which was unclear, and the patient had continued to deteriorate on the ship. The patient states himself he is weak. He states he was perfectly feeling well. He was weak; however, otherwise he had no fevers, no chills, and no chest pain. He did have multiple falls and etiology of the falls were unclear. PAST MEDICAL HISTORY: Significant for hypertension; atrial fibrillation; status post ablation, on Xarelto; obesity with a BMI of 37; and early dementia. PAST SURGICAL HISTORY: Noncontributory. The patient has no exposure to tuberculosis. ALLERGIES: HE IS ALLERGIC TO NITROGLYCERIN. On the cruise, mostly his time was spent on the ship. MEDICATIONS AT HOME: Include Xarelto 20 mg p.o. daily, metoprolol 25 mg p.o. b.i.d., furosemide 20 mg daily, and amiodarone 200 mg p.o. b.i.d. PHYSICAL EXAMINATION: GENERAL: The patient is in bed, he is slow to response; although, he is awake and he does respond, he has one-sided weakness. VITAL SIGNS: Temperature 98, blood pressure is 106/59, respiratory rate of 17, and heart rate of 93. HEENT: Unremarkable. NECK: Supple. LUNGS: Have decreased breath sounds. HEART: Normal S1 and S2. ABDOMEN: Soft and nontender. EXTREMITIES: The patient has multiple ecchymoses and bruises throughout his body. His right arm and right leg are weak and he has a facial droop. LABORATORY EXAMINATION: Reveals a white count is 8.8, hemoglobin of 14, platelets of 174. The patient has 78% polys. Coagulation reveals INR of 1.51, PT is 16.7, PTT is 31, and blood gases are noted. Chemistry reveals that LDH is elevated at 1171, the CK is up to 9800, AST is 165, BUN of 26, and creatinine of 1.1. The patient has albumin of 3.4. Sodium of 139. Urinalysis is noted with 1 to 3 wbc's and large blood. Microbiology is pending. Review of the chest x-ray is reported to be negative. CAT scan of the head is reported to be negative. Influenza serology is positive. ASSESSMENT AND PLAN: A 71-year-old with hypertension, obesity, body mass index of 37, history of atrial fibrillation; status post ablation, on Xarelto, history of early dementia, who is ill on going to the cruise ship, now with heart rate of 98, respiratory rate of 24, positive influenza with right-sided weakness and with a creatine phosphokinase elevation sepsis secondary to influenza, and most likely secondary to centra nervous system complications of influenza with right-sided weakness, encephalitis, rhabdomyolysis, and myositis, complications of influenza. We will treat with Tamiflu. Should use higher doses of Tamiflu because of his obesity and we will order hepatitis profile, aldolase, blood cultures, methicillin-resistant Staphylococcus aureus screen, urine culture, and we will also order a with LFT elevation and elevated CPK, change in mental status is less likely. Tamiflu has been ordered by Dr. Alejo Mccloud. We will make further recommendations based on findings. The patient should have an MRI. A 10% of subarachnoid hemorrhages may have a negative CAT scan of the head, and Neurology is called for possible spinal tap. We will follow closely with you. Should have MRI of the head. Eddie Mckenzie MD
--- NOTE | 2017-07-14 09:49 | CON ---
DATE: 07/14/2017 PULMONARY CONSULTATION REASON FOR CONSULTATION: Shortness of breath. REFERRING PHYSICIAN: Alejo Mccloud DO HISTORY OF PRESENT ILLNESS: History is obtained via extensive discussion with the night nurses. I have also discussed the case with the at length. I have also reviewed the chart at length. The patient does not appear to be an adequate historian. The patient is a 71-year-old male, with past medical history significant for atrial fibrillation, status post ablation earlier this year, currently on Xarelto, who presents to [facility] with increasing right-sided weakness, frequent falls, and a decrease in his manual dexterity. The patient was transferred to [facility]-from the cruise ship. Apparently, earlier in their cruise, the patient started to need help cutting his food. He also fell several times. On 07/12, at approximately 10 a.m., the patient was found by his lying on the floor(of their cabin). The patient was then taken to the medical unit for additional evaluation and treatment. Because of his progressive symptoms, he was then transferred from the cruise ship to [facility] for additional evaluation and treatment. Again, I did discuss the case with the at length. Apparently, the patient did present to [facility] with mild shortness of breath(as per the vitals). However, the denies seeing her short of breath at anytime. There is no history of cough or sputum production. There is no history of chest pain, coughing up of blood, or chest pain-made worse with deep respirations. There are no documented temperatures. No history of chills or infectious exposure. No history of night sweats, weight loss or appetite change prior to the above events. No history of calf pains. No history of syncope or diaphoresis. There is a history of recent travel (above). Again, there is also a history of frequent falling. REVIEW OF SYSTEMS: No history of nausea, vomiting or diarrhea. No acute urinary symptoms. No history of significant snoring or apnea (discussed with ). Rest of the review of systems is negative. ALLERGIES: NITROGLYCERIN. SOCIAL HISTORY: Negative for tobacco and negative for alcohol. FAMILY HISTORY: No inheritable diseases. HOME MEDICATIONS: Include Xarelto, Lopressor, Lasix, Cordarone. PHYSICAL EXAMINATION: GENERAL: The patient appears comfortable this morning. He is not short of breath at rest. VITAL SIGNS: Temperature is 98.7, pulse on the monitor is 91, respiratory rate 20, blood pressure 126/72. Oxygen saturation on nasal cannula is 98%. HEENT: Normocephalic, atraumatic. NECK: No JVD. CARDIOVASCULAR: Systolic ejection murmur at the lower left sternal border. No S3 gallop. LUNGS: Clear bilaterally. EXTREMITIES: Mild edema. No cyanosis, no clubbing. Calves are nontender to palpation. GASTROINTESTINAL: Abdomen is soft, nontender, nondistended. Bowel sounds are positive. SKIN: There are some scattered excoriations on the patient's right leg and right hip. No rashes. NEUROLOGIC: limited exam. PERTINENT LABORATORY DATA: Chest x-ray was done this morning and reviewed. There is no active disease present. CAT scan of the brain was also done. There are no acute findings. CBC: White count 8.5, hemoglobin 14.1, hematocrit 42.1, and platelets of 158. Arterial blood gas was done on nasal cannula. Results are; pH 7.44, pCO2 of 35, pO2 of 77. Complete metabolic profile: BUN 24, AST 208, ALT 65, creatine kinase 9745. Rest of the metabolic profile is within normal limits. Serologies done for influenza A are positive. IMPRESSION: 1. Rule out cerebrovascular accident. 2. Frequent falls. 3. Rhabdomyolysis. 4. Influenza A positivity. 5. Chronic cardiac arrhythmias. 6. Shortness of breath-improved. PLAN: Again, I did discuss the case with the at length. I have also discussed the case with the ICU nurses, and reviewed the chart at length. The patient presents to [facility]-transferred from the cruise ship-with progressive right-sided weakness and frequent falls. As above, he also had a decrease in his manual dexterity. He was thus admitted for additional evaluation and treatment. I did review all of the vital signs throughout his hospitalization. When he initially arrived to the emergency room, the patient was mildly short of breath. That shortness of breath has since resolved this morning. Again, as above, the denies any history of shortness of breath, cough or other pulmonary symptoms-- for her . I did review the chest x-ray as above. It shows no acute disease. Neurology evaluation with Dr. Quijano has been ordered. Cardiology evaluation with Dr. Schwartz has also been ordered. Lastly, Infectious Disease evaluation with Dr. Mckenzie has also been ordered. Multiple serologies are pending. As per the , the patient is clinically much improved this morning-compared to the past few days. I will also order aspiration questions. MRI of the brain is ordered. Additional pulmonary intervention will be based on the clinical status of the patient. I will discuss the above with the entire ICU team in the next few moments. I will also discuss the above with the attending physician later this morning. Thank you very much for this pulmonary consultation. Srini De La Rosa MD MTDD
--- NOTE | 2017-07-14 12:38 | MRI ---
PROCEDURE: MRI BRAIN WITHOUT CONTRAST HISTORY: cva COMPARISON: None. TECHNIQUE: Multiplanar, multisequence MR images of the brain were obtained without intravenous contrast enhancement. FINDINGS: HEMORRHAGE: None DWI: No evidence of an acute or early subacute infarction. BRAIN PARENCHYMA: No mass effect or edema. No atrophy or chronic microvascular ischemic changes. VENTRICLES: Unremarkable. No hydrocephalus. CRANIUM: Unremarkable. ORBITS: Grossly unremarkable. PARANASAL SINUSES/MASTOIDS: Clear VASCULAR SYSTEM: Skull base flow voids intact. OTHER FINDINGS: None. IMPRESSION: Unremarkable non contrast enhanced MRI of the brain.
[2017-07-14] MEDS: Sodium Chloride 0.9% 1,000 ML IV SCH (14:32)
--- NOTE | 2017-07-14 15:03 | PN ---
NEUROLOGY PROGRESS NOTE SUBJECTIVE: The patient is lying on the bed, in no acute distress. Denies having any headache or dizziness. PHYSICAL EXAMINATION: VITAL SIGNS: Blood pressure is 118/63, heart rate is 86 per minute, breathing at the rate of 16 per minute, temperature is 97.8 degree Fahrenheit. HEENT: Normocephalic and atraumatic. NECK: Supple. There are no carotid bruits. LUNGS: Clear. CARDIOVASCULAR: S1 and S2 audible. No murmurs. ABDOMEN: Soft and nontender. Bowel sounds present. NEUROLOGIC: Mental status: The patient is awake, alert and oriented to time, place and person. Speech is fluent. He follows all simple commands. Cranial nerve examination: Pupils are 3 mm bilaterally, reactive to light. Visual cote are full. Extraocular movements are intact. There is decreased nasolabial fold on the right side. Palate is upgoing bilaterally and tongue is midline. Motor examination: Tone is normal. Power on the left side is 5/5, power in the right upper extremity is 3/5, power in the right lower extremity is 2/5 to 3/5. Plantars are upgoing on the right and downgoing on the left side. LABORATORY DATA: Reviewed, shows WBC 8.5, hemoglobin 14.1, hematocrit 42.1, and platelets of 158. Sodium is 140, potassium 3.8, chloride 105, carbon dioxide content of 27, BUN of 23, creatinine 0.9, and glucose of 94. IMPRESSION: 1. Cerebrovascular accident with right hemiparesis. 2. History of atrial fibrillation. RECOMMENDATIONS: 1. The patient to have MRI of the brain without contrast. 2. The patient also to have carotid Doppler studies. 3. The patient was on Xarelto for underlying atrial fibrillation. It appears that it failed and considered changing it to Eliquis. Previously, the patient was on Pradaxa. 4. The patient to be continued on statin. 5. The patient will have physical therapy. 6. Please continue supportive care and the treatment. Thank you for the opportunity to participate in the care of this patient. Aileen Quijano MD [facility] # [id number]
--- NOTE | 2017-07-14 16:14 | CP.PCM.PN ---
Subjective - Date & Time of Evaluation Date of Evaluation: 07/14/17 Time of Evaluation: 16:10 - Subjective Subjective: Comfortable, no fevers overnight, now starting to move the right arm and leg better. Objective - Vital Signs/Intake and Output Vital Signs (last 24 hours): Temp Pulse Resp BP Pulse Ox 97.8 F 81 24 133/74 96 07/14/17 04:00 07/14/17 14:30 07/14/17 14:30 07/14/17 14:01 07/14/17 14:30 Intake and Output: 07/14/17 07/14/17 06:59 18:59 Intake Total 1200 Output Total 500 Balance 700 - Medications Medications: Current Medications Amiodarone HCl (Cordarone) 200 mg PO BID [facility] Last Admin: 07/14/17 09:16 Dose: 200 mg Aspirin (Ecotrin) 81 mg PO DAILY [facility] Last Admin: 07/14/17 09:17 Dose: 81 mg Atorvastatin Calcium (Lipitor) 80 mg PO DIN [facility] Sodium Chloride (Sodium Chloride 0.9%) 1,000 mls @ 125 mls/hr IV .Q8H [facility] Last Admin: 07/14/17 14:32 Dose: 125 mls/hr Metoprolol Tartrate (Lopressor) 25 mg PO BID [facility] Last Admin: 07/14/17 09:17 Dose: 25 mg Oseltamivir Phosphate (Tamiflu Cap) 75 mg PO BID [facility] PRN Reason: Protocol Stop: 07/18/17 12:36 Last Admin: 07/14/17 09:17 Dose: 75 mg Rivaroxaban (Xarelto) 20 mg PO DIN [facility] PRN Reason: Protocol - Labs Labs: 07/14/17 05:20 07/14/17 05:20 PT 16.7 SECONDS (9.4-12.5) H 07/13/17 09:11 INR 1.51 (0.93-1.08) H 07/13/17 09:11 APTT 31.6 Seconds (25.1-36.5) 07/13/17 09:11 - Constitutional Appears: Non-toxic, No Acute Distress - Head Exam Head Exam: NORMAL INSPECTION - Neck Exam Neck Exam: absent: Meningismus - Respiratory Exam Respiratory Exam: Decreased Breath Sounds - Cardiovascular Exam Cardiovascular Exam: +S1, +S2 - GI/Abdominal Exam GI & Abdominal Exam: Soft. absent: Tenderness Assessment and Plan - Assessment and Plan (Free Text) Plan: Assessment Sepsis due to systemic viral illness with Influenza with associated myositis, rhabdomyolysis R/O encephalitis associated with Influenza (although no findings suggestive on MRI of the brain) R/O cerebrovascular accident with right sided weakness HTN obesity with BMI 37 history of atrial fibrillation S/P ablation, on anticoagulation Plan Continue Tamiflu (day 2); continue to trend CPK levels reviewed MRI brain which did not show acute findings - follow up further Neurology recommendations will monitor clinically
--- NOTE | 2017-07-14 18:54 | US ---
HISTORY: Leg pain and swelling. Evaluate for DVT PHYSICIAN(S): Earl Sarmiento MD. TECHNIQUE: Duplex sonography and color-flow Doppler with graded compression were used to evaluate the deep venous systems of both lower extremities. FINDINGS: The visualized deep venous systems of both lower extremities are sonographically normal and compressible. Normal wave forms and augmentation are seen. There is no sonographic evidence for deep venous thrombosis in the visualized segments of both lower extremities. IMPRESSION: No sonographic evidence for deep venous thrombosis in the visualized segments of both lower extremities.
--- NOTE | 2017-07-14 18:54 | US ---
PROCEDURE: Bilateral carotid artery duplex ultrasound HISTORY: Carotid stenosis CVA PHYSICIAN(S): Earl Sarmiento MD. TECHNIQUE: Duplex sonography and color-flow Doppler were used to evaluate the carotid bifurcations and limited segments of the vertebral arteries bilaterally. FINDINGS: There is mild smooth hypoechoic plaque noted at the carotid bifurcations bilaterally. The peak systolic velocity in the proximal right internal carotid artery is 104 cm/sec. This corresponds to a 20 to 39% proximal right ICA stenosis. Normal systolic velocities are noted in the proximal right external carotid artery. There is antegrade flow in the right vertebral artery. The peak systolic velocity in the proximal left internal carotid artery is 121 cm/sec. This corresponds to a 40-59 percent proximal left ICA stenosis. Normal systolic velocities are noted in the proximal left external carotid artery. There is antegrade flow in the left vertebral artery. IMPRESSION: 1. 40-59 percent proximal left ICA stenosis. 2. 20-39 percent proximal right ICA stenosis. 3. Antegrade flow in both vertebral arteries.
[2017-07-15 07:20] LABS: HEMATOCRIT 40.9 % (42.0-52.0); MEAN CELL VOLUME 91.1 fl (80.0-105.0); MEAN CORPUSCULAR HEMOGLOBIN 30.1 pg (25.0-35.0); MEAN PLATELET VOLUME 9.5 fl (7.0-11.0); RED CELL DISTRIBUTION WIDTH 14.5 % (11.5-14.5); WHITE BLOOD COUNT 7.3 10^3/ul (4.5-11.0)
[2017-07-15 07:38] LABS: ALB/GLOB RATIO 1.2 (1.1-1.8); ALKALINE PHOSPHATASE 65 U/L (38-126); ALT/SGPT 72 U/L (7-56); AST/SGOT 169 U/L (17-59); BILIRUBIN,TOTAL 1.3 mg/dL (0.2-1.3); BLOOD UREA NITROGEN 18 mg/dL (7-21); CALCIUM 8.1 mg/dL (8.4-10.5); CARBON DIOXIDE 28 mmol/L (21-33); CHLORIDE 104 mmol/L (95-110); GFR AFRICAN-AMERICAN > 60; GLUCOSE,RANDOM 94 mg/dL (70-110); SODIUM 139 mmol/L (132-148); TOTAL PROTEIN 5.7 g/dL (5.8-8.3)
--- NOTE | 2017-07-15 08:06 | CON ---
DATE: 07/14/2017 CARDIOLOGY CONSULTATION HISTORY: The patient is a 71-year-old male, who was transferred here from the cruise ship. The patient's past medical history includes progressive lethargy and neurologic changes even prior to his trip on the cruise. During the cruise, the patient's states the patient has been lethargic with stumbling, using his upper extremities, as well as with confusion. He was also found to be on the floor on different occasions. The patient's past medical history is free of cardiac disease except for chronic atrial fibrillation in which he underwent recent ablation and has been placed on Xarelto this entire time. She denies he having hypertension or diabetes mellitus. No previous myocardial infarction. He has had three catheterizations in the past which revealed no critical coronary lesions. REVIEW OF SYSTEMS: Not available. PHYSICAL EXAMINATION: VITAL SIGNS: Reveal a blood pressure of 133/74, heart rates in the 80s, normal sinus rhythm. NECK: Negative JVD. LUNGS: Without rales. HEART: S1 and S2. EXTREMITIES: Without edema. NEUROLOGICAL: The patient is lethargic. DIAGNOSTICS: EKG shows normal sinus rhythm with no acute changes. LABORATORIES: Includes troponins that are negative x1. The CPKs are elevated to 9000. BUN and creatinine are unremarkable. The hemoglobin is 14. IMPRESSION: 1. Altered mental status. 2. Lethargy. 3. History of atrial fibrillation, treated with ablation in which the patient remained in normal sinus rhythm and is currently on appropriate anticoagulation. 4. Weakness. PLAN: Given these findings, there is no cardiac component to his altered mental status at this time. We will obtain an echocardiogram to evaluate chamber sizes and to rule out a thrombus. Earl Schwartz MD
--- NOTE | 2017-07-15 08:26 | PN ---
DATE: 07/14/2017 SUBJECTIVE: I saw him in the Intensive Care Unit with his present. She was not in yesterday at the time when I saw him. He is alert in bed. She tells me he is still off, not 100%. Neurology came in, ordered carotids and brain MRI, we are ruling out CVA, which is very possible that he has that. The swallow evaluation is pending. He is still NPO, but he is more alert today than yesterday. He is on aspirin, suppository, Cordarone, Ecotrin, Lasix, Lipitor, Lopressor, IV fluids, Tamiflu, and Xarelto. He does have influenza that came out positive. He is not as swollen today with the IV Lasix and it will decrease the IV fluids. PHYSICAL EXAMINATION VITAL SIGNS: He has got 97.8 temp, 86 pulse, 118/60 blood pressure, 25 respiratory rate, 96% of saturation on room air. GENERAL: He is alert. HEENT: Head is atraumatic and normocephalic. He is swollen. Throat is moist. NECK: Supple. HEART: Regular rate. LUNGS: Decreased breath sounds, but clear. ABDOMEN: Soft, obese. EXTREMITIES: Maybe +1 edema, it was +3 the other day. LABORATORY DATA: He has white count 8.5, [id number], hematocrit 42.1, platelets of 158. He has a 140 sodium, potassium 3.8, BUN 23, creatinine 0.9, GFR is greater than 60, sugar is 94, calcium 8.3, total bili is 0.9. AST is 194, ALT is 65, alkaline phosphate 77, troponin is 0.01, albumin is 5.9. Large blood in the urine, too numerous to count red blood cells. ASSESSMENT AND PLAN: I will call Neurology. He was positive for influenza. He is on Tamiflu. He is being seen by Neurology and the [facility]. See what the MRI and carotid says, see how he does with the swallow evaluation. , AFib, fall, dementia versus stroke, . Alejo Mccloud DO G[facility]
--- NOTE | 2017-07-15 08:59 | PN ---
DATE: 07/15/2017 PULMONARY PROGRESS NOTE SUBJECTIVE: The patient appears comfortable at rest. He is mildly short of breath, but in no acute distress. His speech seems improved. PHYSICAL EXAMINATION: VITAL SIGNS: Temperature is 98.2, pulse on the monitor is 82, respiratory rate is 20/22, and blood pressure is 121/73. Oxygen saturation on nasal cannula is currently 97%. HEENT: Normocephalic and atraumatic. NECK: No JVD. CARDIOVASCULAR: Systolic ejection murmur at the lower left sternal border. No S3 gallop. LUNGS: Clear bilaterally. EXTREMITIES: Mild edema(legs). No cyanosis, no clubbing of the lower extremities. The calves are nontender to palpation. There is moderate swelling of his right upper extremity. GASTROINTESTINAL: Abdomen is soft, nontender and nondistended. Bowel sounds are positive. SKIN: There remains some scattered excoriations on the patient's right leg/arm and right hip. No rashes. NEUROLOGIC: Exam is limited at the present time. IMPRESSION 1. Rule out cerebrovascular accident. 2. Frequent falls. 3. Rhabdomyolysis. 4. Influenza A positivity. 5. Chronic cardiac arrhythmias. 6. Shortness of breath(mild). PLAN: The patient appears comfortable this morning. He is mildly short of breath, but in certainly in no acute distress. On physical exam, his lungs remain clear. Oxygen saturation on nasal cannula is currently 97%. I did discuss the case with the (at bedside) at length. The states that the patient's speech has definitely improved. However, his right upper extremity remains very weak and edematous. I would continue with the neurologic evaluation. Input by Dr. Quijano is noted. I would continue the antibiotic coverage as per infectious disease. Input by Dr. Mckenzie is noted. Multiple serologies are still pending. There are no temperatures noted. There is no leukocytosis. The mild shortness of breath (listed above) is most likely metabolic in nature. As the patient's overall condition improves, his shortness of breath should resolve. However, I will continue to follow the patient closely. I will discuss the above with the entire ICU team the next few moments. I will also discuss the above with Dr. Mccloud later this morning. Srini De La Rosa MD [facility] # [id number] [place]
--- NOTE | 2017-07-15 09:34 | CARD ---
APPROVED REPORT EXAM: Two-dimensional and M-mode echocardiogram with Doppler and color Doppler. Other Information Quality : FairRhythm : INDICATION EDEMA/LVFX 2D DIMENSIONS Left Atrium (2D)4.0 (1.6-4.0cm)IVSd1.1 (0.7-1.1cm) LVDd5.1 (3.9-5.9cm)PWd1.2 (0.7-1.1cm) LVDs3.2 (2.5-4.0cm)FS (%) 37.7 % LVEF (%)67.0 (>50%) M-Mode DIMENSIONS Aortic Cusp Exc.2.00 (1.5-2.0cm) Aortic Valve AoV Peak Faozxjcn668.0cm/s Mitral Valve MV E Gdmndlvs65.7cm/sMV A Njzayhxc98.2cm/sE/A ratio1.3 TDI E/Lateral E'0.0E/Medial E'0.0 Pulmonary Valve PV Peak Qrwveqhn28.5cm/sPV Peak Grad.2mmHg Tricuspid Valve TR Peak Hyyqudla861pm/sRAP [id number] Peak Gr.22mmHg [id number] LEFT VENTRICLE The left ventricle is normal size. There is normal left ventricular wall thickness. The left ventricular function is normal. The left ventricular ejection fraction is within the normal range. There is normal LV segmental wall motion. RIGHT VENTRICLE The right ventricle structure and function is normal. ATRIA The left atrium size is normal. The right atrium size is normal. AORTIC VALVE The aortic valve is normal in structure. MITRAL VALVE The mitral valve is normal in structure. Mitral regurgitation is trace. TRICUSPID VALVE The tricuspid valve is not well visualized. There is trace tricuspid regurgitation. PULMONIC VALVE The pulmonic valve is not well visualized. PERICARDIAL EFFUSION There is no pericardial effusion. <Conclusion> The left ventricle is normal size. There is normal left ventricular wall thickness. The left ventricular function is normal.
[2017-07-15] MEDS: Sodium Chloride 0.9% 1,000 ML IV SCH ×2 (11:00→17:02)
--- NOTE | 2017-07-15 11:13 | CP.PCM.PN ---
Subjective - Date & Time of Evaluation Date of Evaluation: 07/15/17 Time of Evaluation: 09:30 - Subjective Subjective: Comfortable in bed, no fevers overnight, starting to move his right sided extremities. Objective - Vital Signs/Intake and Output Vital Signs (last 24 hours): Temp Pulse Resp BP Pulse Ox 98.2 F 85 27 H 121/73 90 L 07/15/17 04:00 07/15/17 06:40 07/15/17 06:40 07/15/17 05:00 07/15/17 05:30 Intake and Output: 07/14/17 07/15/17 18:59 06:59 Intake Total 1450 1500 Output Total 700 800 Balance 750 700 - Medications Medications: Current Medications Amiodarone HCl (Cordarone) 200 mg PO BID [facility] Last Admin: 07/14/17 17:21 Dose: 200 mg Aspirin (Ecotrin) 81 mg PO DAILY [facility] Last Admin: 07/14/17 09:17 Dose: 81 mg Atorvastatin Calcium (Lipitor) 80 mg PO DIN [facility] Last Admin: 07/14/17 17:23 Dose: 80 mg Sodium Chloride (Sodium Chloride 0.9%) 1,000 mls @ 125 mls/hr IV .Q8H [facility] Last Admin: 07/14/17 14:32 Dose: 125 mls/hr Metoprolol Tartrate (Lopressor) 25 mg PO BID [facility] Last Admin: 07/14/17 17:23 Dose: 25 mg Mupirocin (Bactroban Ointment) 0 gm TOP BID [facility] Last Admin: 07/14/17 17:21 Dose: 1 applic Oseltamivir Phosphate (Tamiflu Cap) 75 mg PO BID [facility] PRN Reason: Protocol Stop: 07/18/17 12:36 Last Admin: 07/14/17 17:23 Dose: 75 mg Rivaroxaban (Xarelto) 20 mg PO DIN [facility] PRN Reason: Protocol Last Admin: 07/14/17 17:38 Dose: 20 mg - Labs Labs: 07/14/17 05:20 07/14/17 05:20 PT 16.7 SECONDS (9.4-12.5) H 07/13/17 09:11 INR 1.51 (0.93-1.08) H 07/13/17 09:11 APTT 31.6 Seconds (25.1-36.5) 07/13/17 09:11 - Constitutional Appears: Non-toxic - Head Exam Head Exam: NORMAL INSPECTION - ENT Exam ENT Exam: Mucous Membranes Moist - Neck Exam Neck Exam: absent: Meningismus - Respiratory Exam Respiratory Exam: Decreased Breath Sounds - Cardiovascular Exam Cardiovascular Exam: +S1, +S2 - GI/Abdominal Exam GI & Abdominal Exam: Soft. absent: Tenderness Assessment and Plan - Assessment and Plan (Free Text) Plan: Assessment Sepsis due to systemic viral illness with Influenza with associated myositis, rhabdomyolysis R/O encephalitis associated with Influenza (although no findings suggestive on MRI of the brain) R/O cerebrovascular accident with right sided weakness HTN obesity with BMI 37 history of atrial fibrillation S/P ablation, on anticoagulation Plan Continue Tamiflu (day 3), to complete 5 days of therapy - keep on droplet precautions while on Tamiflu; continue to trend CPK levels reviewed MRI brain which did not show acute findings - follow up further Neurology recommendations will continue to monitor clinically
--- NOTE | 2017-07-15 13:41 | PN ---
SUBJECTIVE: I saw him in the Intensive Care Unit. He is presently confused, in bed. His is present, sleeping on the Raquel chair. He slept well. He is about the same mentally. He has been given IV fluids. AFib, fall, rhabdomyolysis, dementia, syncope, viral infection with a flu. He is currently on Bactroban cream, Cordarone, Ecotrin, Lipitor, Lopressor, IV fluids, Tamiflu and Xarelto. PHYSICAL EXAMINATION: VITAL SIGNS: Temperature 98.2, 81 pulse, 26 respiratory rate, 98% O2 sat on nasal cannula. HEENT: His head is atraumatic, normocephalic. He is a little bit puffy. Throat is moist. NECK: Supple. HEART: Regular rate. LUNGS: Decreased breath sounds, but clear. ABDOMEN: Soft, morbidly obese, nontender. EXTREMITIES: +2/4 pitting edema. We stopped the Lasix as we wanted to fix the rhabdomyolysis. He is swelling up a little bit. LABORATORY DATA: He has a 139 sodium, potassium 4, BUN is 18, creatinine 0.8, GFR is greater than 60, sugar is 94, calcium is 8.1, total bili is 1.3, AST is 169, ALT is 72 and alk phos 65, all much improved. His TCK was 7100, down 2000 points. His troponin was 0.01. Total protein is 5.7. White count is 7.3, hemoglobin 13.5, hematocrit 40.9, platelets of 158. Hepatitis is negative. Legionella is negative, but he has positive influenza. ASSESSMENT AND PLAN: He is being seen by Infectious Disease, Cardiology, Neurology. He had an MRI of the brain, which was negative. He will be transferred out of the unit today. He is also being seen by Pulmonary. We will continue with aggressive treatment and care for his change in mentation, atrial fibrillation, fall, rhabdomyolysis . Alejo Mccloud DO MTDD
--- NOTE | 2017-07-15 17:03 | MRI ---
PROCEDURE: MR CERVICAL SPINE WITHOUT CONTRAST HISTORY: right sided weakness COMPARISON: None available. TECHNIQUE: Multiecho multiplanar sequences were performed through the cervical spine without the use of intravenous contrast. FINDINGS: Normal lordotic curvature. Craniocervical junction unremarkable. Vertebral body heights preserved. No marrow signal abnormality. Normal cervical cord. No paraspinal abnormality. C2-C3: No disc herniation, spinal canal stenosis or neural foraminal narrowing. C3-C4: Disc degeneration with minimal central disc protrusion C4-C5: Mild disc degeneration C5-C6: There is disc degeneration with an osteophytic ridge. There is bilateral foraminal stenosis and mild central stenosis C6-C7: Disc degeneration with an osteophytic ridge. Severe right-sided foraminal stenosis and mild central stenosis C7-T1: No disc herniation, spinal canal stenosis or neural foraminal narrowing. OTHER FINDINGS: None. IMPRESSION: Multilevel degenerative changes described above. C5-6 and C6-7 foraminal stenosis and mild central stenosis
[2017-07-16] MEDS: Sodium Chloride 0.9% 1,000 ML IV SCH ×4 (00:30→22:11)
--- NOTE | 2017-07-16 12:21 | PN ---
DATE: 07/15/2017 SUBJECTIVE: The patient is without distress. No shortness of breath. No chest pain. PHYSICAL EXAMINATION: VITAL SIGNS: Blood pressure is 130/73, heart rate in the 80s. NECK: Negative JVD. LUNGS: Decreased breath sounds. HEART: Reveal S1 and S2. EXTREMITIES: Without edema. LABORATORY DATA: Hemoglobin is 13.5. Chemistries: BUN and creatinine unremarkable. The echocardiogram shows good LV function. IMPRESSION 1. Altered mental status. 2. Normal sinus rhythm with a history of atrial fibrillation ablation 3. Good left ventricular function. 4. Lethargy. PLAN: Given these findings, the patient's cardiac status is stable. Need to rule out a CVA. From a cardiac perspective, the patient can be transferred to telemetry. Earl Schwartz MD
--- NOTE | 2017-07-16 12:48 | CP.PCM.PN ---
Subjective - Date & Time of Evaluation Date of Evaluation: 07/16/17 Time of Evaluation: 10:00 - Subjective Subjective: Patient is more awake today but still having slow speech, able to move right leg and arm better, no fevers overnight. Objective - Vital Signs/Intake and Output Vital Signs (last 24 hours): Temp Pulse Resp BP Pulse Ox 98.8 F 84 20 137/63 95 07/15/17 23:21 07/16/17 05:56 07/16/17 05:56 07/15/17 23:21 07/15/17 21:50 Intake and Output: 07/16/17 07/16/17 06:59 18:59 Intake Total 1000 Output Total 1000 Balance 0 - Medications Medications: Current Medications Amiodarone HCl (Cordarone) 200 mg PO BID [facility] Last Admin: 07/15/17 17:15 Dose: 200 mg Aspirin (Ecotrin) 81 mg PO DAILY [facility] Last Admin: 07/15/17 12:25 Dose: 81 mg Atorvastatin Calcium (Lipitor) 80 mg PO DIN [facility] Last Admin: 07/15/17 17:15 Dose: 80 mg Sodium Chloride (Sodium Chloride 0.9%) 1,000 mls @ 80 mls/hr IV .[id number] [facility] Metoprolol Tartrate (Lopressor) 25 mg PO BID [facility] Last Admin: 07/15/17 17:15 Dose: 25 mg Mupirocin (Bactroban Ointment) 0 gm TOP BID [facility] Last Admin: 07/15/17 18:05 Dose: Not Given Oseltamivir Phosphate (Tamiflu Cap) 75 mg PO BID [facility] PRN Reason: Protocol Stop: 07/18/17 12:36 Last Admin: 07/15/17 17:15 Dose: 75 mg Rivaroxaban (Xarelto) 20 mg PO DIN [facility] PRN Reason: Protocol Last Admin: 07/15/17 17:23 Dose: 20 mg - Labs Labs: 07/15/17 07:15 07/15/17 07:15 PT 16.7 SECONDS (9.4-12.5) H 07/13/17 09:11 INR 1.51 (0.93-1.08) H 07/13/17 09:11 APTT 31.6 Seconds (25.1-36.5) 07/13/17 09:11 - Constitutional Appears: Non-toxic, No Acute Distress - Head Exam Head Exam: NORMAL INSPECTION - ENT Exam ENT Exam: Mucous Membranes Moist - Neck Exam Neck Exam: absent: Lymphadenopathy, Meningismus - Respiratory Exam Respiratory Exam: Decreased Breath Sounds - Cardiovascular Exam Cardiovascular Exam: +S1, +S2 - GI/Abdominal Exam GI & Abdominal Exam: Soft. absent: Tenderness - Extremities Exam Additional comments: right arm with dressings in place Assessment and Plan - Assessment and Plan (Free Text) Plan: Assessment Sepsis due to systemic viral illness with Influenza with associated myositis, rhabdomyolysis R/O encephalitis associated with Influenza (although no findings suggestive on MRI of the brain) R/O cerebrovascular accident with right sided weakness HTN obesity with BMI 37 history of atrial fibrillation S/P ablation, on anticoagulation Plan Continue Tamiflu (day 4), to complete 5 days of therapy - keep on droplet precautions while on Tamiflu; continue to trend CPK levels reviewed MRI brain which did not show acute findings - follow up further Neurology recommendations - may have LP today discussed with Dr. Mccloud will continue to monitor clinically
--- NOTE | 2017-07-16 14:01 | PN ---
SUBJECTIVE: The patient appears comfortable this morning. He is not short of breath at rest. PHYSICAL EXAMINATION VITAL SIGNS: Temperature is 98.8, pulse 84, respirations 20, blood pressure 137/63. Oxygen saturation on room air is 95% to 97%. HEENT: Normocephalic, atraumatic. NECK: No JVD. CARDIOVASCULAR: Systolic ejection murmur at the lower left sternal border. No S3 gallop. LUNGS: Clear bilaterally. EXTREMITIES: Legs reveal mild edema. No cyanosis, no clubbing. Calves are nontender to palpation. There remains moderate swelling of his right upper extremity. GASTROINTESTINAL: Abdomen is soft, nontender and nondistended. Bowel sounds are positive. SKIN: Scattered excoriations on the patient's right leg/arm and right hip. No rashes. NEUROLOGIC: Limited at the present time. IMPRESSION: 1. Rule out cerebrovascular accident. 2. Frequent falls. 3. Rhabdomyolysis. 4. Influenza A positivity. 5. Chronic cardiac arrhythmias. 6. Shortness of breath-intermittent. PLAN: The patient appears comfortable this morning. He is not short of breath at present. However,upon review of the vital signs, he was more short of breath yesterday. The patient's mental status remains very questionable. He barely let me finish my physical exam. He also refused blood work. I did discuss the case with the and nurse at length. Again, upon review of the vitals, there was a period of time yesterday where he was short of breath. He is not short of breath this morning. I would continue with the neurologic evaluation and workup. Input by Dr. Quijano is noted. I would continue with the antibiotic coverage as per Infectious Disease. Input by Dr. Perez is noted. Clinical status of the patient is overall improved. However, he remains guarded. I will discuss the above with Dr. Mccloud this morning. Srini De La Rosa MD [facility]
--- NOTE | 2017-07-16 16:05 | PN ---
CARDIOLOGY FOLLOWUP DATE OF SERVICE: 07/16/2017 SUBJECTIVE: The patient is in a chair, more alert today. OBJECTIVE: VITAL SIGNS: On physical exam, blood pressure is 137/63, the heart rate is in the 80s. NECK: Negative JVD. LUNGS: Without rales. HEART: With S1 and S2. EXTREMITIES: Without edema. LABORATORY DATA: Hemoglobin is 13.5, potassium is 4.0. BUN and creatinine are normal. IMPRESSION: 1. Altered mental status, likely due to viral syndrome. 2. History of atrial fibrillation, treated with ablation. 3. Lethargy. 4. Mild hypertension. PLAN: Given these findings, the patient is doing well, and hemodynamically stable, we will discontinue telemetry today. Earl Schwartz MD
--- NOTE | 2017-07-16 16:07 | PN ---
DATE: SUBJECTIVE: I saw him this morning in his room with his . He is becoming more belligerent. He would not let me examine him. He is pushing my stethoscope and my hand away. He is becoming little bit demanding. The is really not helping or not saying anything to help me to get through the exam and discussion and he does not look that much better. I called in Psychiatry to help us if there is a psychological component to his issues. MEDICATIONS: He is on Bactroban cream, Cordarone, Ecotrin, Lipitor, Lopressor, IV fluids are decreased to 80 mL an hour, Tamiflu, and Xarelto. PHYSICAL EXAMINATION: GENERAL: He is in bed, he is very weak. VITAL SIGNS: Temperature 98.8, pulse 81, blood pressure 137/63, and respiratory rate 20. HEENT: His head is atraumatic and normocephalic. HEART: Regular rate. LUNGS: Decreased breath sounds. ABDOMEN: Soft. EXTREMITIES: No edema. I did as good as I could with fighting off his hand to get somehow listen to him. I tried to explain to him the importance of letting me do an exam. LABORATORY DATA: He has a white count of 7.3, hemoglobin 13.5, hematocrit 40.9, and platelets 158. He has a sodium 139, potassium 4, BUN is 18, creatinine 0.8. GFR is greater than 60. Sugar is 94. His yesterday's labs, AST is 169, ALT is 72, alkaline phosphatase of 65. I ordered lab for tomorrow plus a CPK. He is being seen by Infectious Disease. They think it could influenza or influenza encephalitis. He had a cervical spine MRI, which showed multilevel degenerative changes, C5-C6, C6-C7 foraminal stenosis, and mild central stenosis. No herniated disks. He is being seen by Infectious Disease, Cardiology, Neurology, Pulmonary, and I called in Psychiatry today. ASSESSMENT AND PLAN: He is having altered mental status, lethargy, influenza, very weak. We need to get physical therapy back in to get his body moving wherever he goes subacute rehab here in [place] or back home where they live. I believe, they live in . Alejo Mccloud, DO [facility]
[2017-07-16] MEDS: Promethazine DM 6.25 mg-15 mg/5 ml Syrup PO SCH (18:25)
--- NOTE | 2017-07-16 19:10 | PN ---
DATE: NEUROLOGY PROGRESS NOTE SUBJECTIVE: The patient is lying on the bed in no acute distress. Denies having any headache or dizziness. Denies any neck pain. As per nursing, the patient was noted to be confused at times. PHYSICAL EXAMINATION: VITAL SIGNS: Blood pressure is 137/63, heart rate is 86 per minute, breathing at the rate of 16 per minute, temperature is 98.8 degrees Fahrenheit. HEENT: Normocephalic and atraumatic. NECK: Supple. There are no carotid bruits. LUNGS: Clear. CARDIOVASCULAR: S1 and S2 audible. No murmurs. ABDOMEN: Soft, nontender. Bowel sounds present. NEUROLOGIC: Mental status: The patient is awake, alert, oriented to time, place and person. Speech is slightly dysarthric. Naming and repetition is normal. Memory and cognition are intact. Cranial nerve examination, pupils are 3 mm bilaterally, reactive to light. Visual cote are full. Extraocular movements are intact. There is a slight decreased nasolabial fold on the right side. Tongue is midline. Motor examination: Tone is normal. There is right-sided hemiparesis. Power 3/5 on the right upper extremity and 2-3/5 on the right lower extremity. Power on the left side is 4/5. Plantars are upgoing on the right and downgoing on the left side. LABORATORY DATA: Reviewed. MRI of the cervical spine shows multilevel degenerative changes. C5-C6 and C6-C7 foraminal stenosis and mild central stenosis. IMPRESSION: 1. Right-sided hemiparesis, which is likely secondary to a small cerebrovascular accident possibly in the lower medulla, which is not visible on MRI of brain. 2. History of atrial fibrillation. RECOMMENDATIONS: 1. The patient to have aggressive physical therapy. 2. The patient had a carotid Doppler study, which shows 40-59% proximal left ICA stenosis and 22-39% proximal right ICA stenosis. 3. The patient will be continued on Xarelto for underlying atrial fibrillation. 4. The patient was noted to be confused at times. We will obtain electroencephalogram. 5. We will also obtain the urine for urinary tract infection. 6. Please continue supportive care and the treatment. Thank you for the opportunity to participate in the care of this patient. Aileen Quijano MD [facility] # [id number]
--- NOTE | 2017-07-16 22:46 | CON ---
DATE: HISTORY OF PRESENT ILLNESS: The patient is a 71-year-old male not known previous psychiatric history. The patient was brought [place] the hospital [place] The patient was both confused as well as stroke was suspected. The patient initially was admitted on to TCU. The patient was downgraded on the second floor. Psych consult was called for evaluation of change in mental status and period of restlessness and refusing certain treatment. The patient was seen and examined today. The patient presented to be with some psychomotor retardation, have some difficulty to express himself sometimes he is mumbling and very hard to understand. The patient's Nya is next to him and collateral information was obtained from her. Going back to the patient presentation; the patient does not know why he is in the hospital. I do not know where or what happened to him, but the patient's aware that medical team suspect that stroke for him. At present moment, the patient reported that, that he feels fine. The patient has asked release my restraint, but the patient is not own restraint. The patient appears to be confused as well. The patient reported that he has difficulty to fall asleep and difficulty to stay asleep. Collateral from the patient's Nya; she reported that the patient does not have history of mental illness. He does not have history of suicidal attempts or no drugs involved to do patient's . Most recently, the patient became emotional labile. His personality has been change. At times, the patient could be very nasty towards her and at times the patient could cry for hours. Besides that the patient has some memory problems and difficulty to name object. Most likely the patient is having early signs of either dementia or normal ageing. The patient does not have history of being lost in the community. The patient does not have history of aggressive behavior or physical aggression and at present moment, the patient's said the patient is not at his baseline. The patient has episodes of restless behavior and both refusing to have certain procedures, for example, blood work. PHYSICAL EXAMINATION VITAL SIGNS: Reviewed. MEDICATIONS: Reviewed. The patient is on amiodarone, aspirin, Lipitor, Ativan will be started as needed for anxiety. The patient is on Lopressor, Tamiflu. The patient was found to have flu. Seroquel 12.5 mg at the nighttime will be started. Sodium chloride and rivaroxaban. This brief writer repeated the patient and his about risks, benefits and alternatives of the medication. LABORATORY DATA: Reviewed. Chemistry reviewed. Total creatine kinase has going down. Influenza was positive. The patient is on isolation. MENTAL STATUS EXAMINATION: As this brief writer described above; the patient appears to be confused, weighing with some psychomotor retardation. No eye contact. The patient is looking on the ceiling, speech appears incoherent. Though process seems to be circumstantial. Thought content, the patient denied visual, auditory, or tactile hallucinations. Denied paranoid ideation. The patient denied thoughts of harming himself or others, but the patient reported to be confused. Insight and judgment limited. Impulses are unpredictable. IMPRESSION: Most likely, the patient has delirium stage . The patient has multiple medical issues including sepsis due to systemic viral illness, influenza which is associated with myositis, rhabdomyolysis. Infectious Disease wanted to rule out encephalitis, but no findings on MRI, rule out cerebrovascular accident with right-sided weakness, hypertension, obesity, body mass of index of 37, history of atrial fibrillation, status post ablation. The patient is on anticoagulation therapy. PLAN: Continue current management. Continue current medication. This brief writer reviewed notes from the primary care physician as well as Neurology team as well as Cardiology team as well as intensive care unit notes. The patient also was seen by Infectious Disease. This brief writer will implement Seroquel to 12.5 mg stage also Ativan 0.25 mg three times a day as needed for agitated and anxious behavior. Case was discussed with the nursing staff as well as collaterals were obtained from the patient's who is next to him. We will follow up and advise accordingly. Thank you very much for letting me participate in the care of your patient. Dayna Duron MD
[2017-07-17 03:46] LABS: URINE BILIRUBIN NEGATIVE (NEGATIVE); URINE BLOOD LARGE (NEGATIVE); URINE GLUCOSE (UA) NEGATIVE (NEGATIVE); URINE KETONE NEGATIVE (NEGATIVE); URINE LEUKOCYTE ESTERASE NEGATIVE Leu/uL (NEGATIVE); URINE PROTEIN TRACE mg/dL (<30 mg/dL)
[2017-07-17 03:47] LABS: URINE APPEARANCE CLEAR (CLEAR); URINE COLOR YELLOW (YELLOW)
[2017-07-17 03:51] LABS: URINE EPITHELIAL CELLS 0 - 2 /hpf (0-5); URINE RBC 15 - 20 /hpf (0-2); URINE WBC 0 - 2 /hpf (0-6)
--- NOTE | 2017-07-17 05:13 | CP.PCM.PN ---
Subjective - Date & Time of Evaluation Date of Evaluation: 07/17/17 Time of Evaluation: 05:11 - Subjective Subjective: S:Something was requested for headache. Has no other complaints. Tylenol 650 mg PO was ordered. Patient is asleep now. O: Last Vital Signs 3 Temp 98.7 F 07/17/17 00:01 Pulse 78 07/17/17 01:34 Resp 20 07/17/17 00:01 BP 116/68 07/17/17 00:01 Pulse Ox 98 07/17/17 00:01 Asleep now. LUNGS:Normal breathing pattern. A: Head ache. P:Tylenol 650 mg PO x 1. Objective - Vital Signs/Intake and Output Vital Signs (last 24 hours): Temp Pulse Resp BP Pulse Ox 98.7 F 78 20 116/68 98 07/17/17 00:01 07/17/17 01:34 07/17/17 00:01 07/17/17 00:01 07/17/17 00:01 - Medications Medications: Current Medications Amiodarone HCl (Cordarone) 200 mg PO BID [facility] Last Admin: 07/16/17 18:25 Dose: 200 mg Aspirin (Ecotrin) 81 mg PO DAILY [facility] Last Admin: 07/16/17 10:30 Dose: 81 mg Atorvastatin Calcium (Lipitor) 80 mg PO DIN [facility] Last Admin: 07/16/17 18:25 Dose: 80 mg Sodium Chloride (Sodium Chloride 0.9%) 1,000 mls @ 80 mls/hr IV .[id number] [facility] Last Admin: 07/16/17 22:11 Dose: 80 mls/hr Lorazepam (Ativan) 0.25 mg PO TID PRN; Protocol PRN Reason: anxiety, restlessness, Metoprolol Tartrate (Lopressor) 25 mg PO BID [facility] Last Admin: 07/16/17 18:25 Dose: 25 mg Mupirocin (Bactroban Ointment) 0 gm TOP BID [facility] Last Admin: 07/16/17 18:25 Dose: 1 applic Oseltamivir Phosphate (Tamiflu Cap) 75 mg PO BID [facility] PRN Reason: Protocol Stop: 07/18/17 12:36 Last Admin: 07/16/17 18:25 Dose: 75 mg Promethazine HCl/Dextromethorphan (Phenergan Dm Syrup) 5 ml PO TID [facility] Stop: 07/30/17 18:01 Last Admin: 07/16/17 18:25 Dose: 5 ml Quetiapine Fumarate (Seroquel) 12.5 mg PO HS DTA PRN Reason: Protocol Last Admin: 07/16/17 22:08 Dose: 12.5 mg Rivaroxaban (Xarelto) 20 mg PO DIN DAT PRN Reason: Protocol Last Admin: 07/16/17 19:48 Dose: 20 mg - Labs Labs: 07/15/17 07:15 07/15/17 07:15 PT 16.7 SECONDS (9.4-12.5) H 07/13/17 09:11 INR 1.51 (0.93-1.08) H 07/13/17 09:11 APTT 31.6 Seconds (25.1-36.5) 07/13/17 09:11
[2017-07-17 06:27] LABS: HEMATOCRIT 36.4 % (42.0-52.0); MEAN CELL VOLUME 89.7 fl (80.0-105.0); MEAN CORPUSCULAR HEMOGLOBIN 29.8 pg (25.0-35.0); MEAN CORPUSCULAR HGB CONC 33.2 g/dl (31.0-37.0); MEAN PLATELET VOLUME 9.3 fl (7.0-11.0); WHITE BLOOD COUNT 6.9 10^3/ul (4.5-11.0)
[2017-07-17 06:41] LABS: ALB/GLOB RATIO 1.1 (1.1-1.8); ALKALINE PHOSPHATASE 55 U/L (38-126); ALT/SGPT 60 U/L (7-56); AST/SGOT 114 U/L (17-59); BILIRUBIN,TOTAL 1.4 mg/dL (0.2-1.3); BLOOD UREA NITROGEN 13 mg/dL (7-21); CALCIUM 7.8 mg/dL (8.4-10.5); CARBON DIOXIDE 28 mmol/L (21-33); CHLORIDE 106 mmol/L (98-107); GFR AFRICAN-AMERICAN > 60; GLUCOSE,RANDOM 101 mg/dL (70-110); POTASSIUM 3.6 mmol/L (3.6-5.0); SODIUM 139 mmol/L (132-148); TOTAL PROTEIN 5.2 g/dL (5.8-8.3)
--- NOTE | 2017-07-17 08:44 | CON ---
CONSULTATION DATE OF SERVICE: 07/14/2017 CHIEF COMPLAINT: Altered mental status. HISTORY OF PRESENT ILLNESS: This is a 71-year-old male who is seen in the CCU at [facility]. The patient was admitted after being found on the floor where he laid for approximately 12 to 14 hours. The patient is seen in his room with his who reports a history that the patient was not feeling well on the cruise ship. She was feeling ill as well. He had apparently fallen in the bedroom. Attempts were made to get him back in bed; however, he was resisting, so he laid on the floor for many hours. When they came off the cruise ship, the patient was noted to have an altered mental status. He was not feeling well in general. He was unable to give most of the history as was his . He was taken to the emergency room to be worked up for possible CVA. He is now admitted and reportedly has the flu. A consultation was requested for hematuria. On discussing with the , she reports he has no history of any prostate problems or voiding difficulties prior to the cruise. He was voiding well with no history of dysuria, frequency, urgency, or gross hematuria. Coon catheter was inserted and remains in place. consultation was requested regarding the above. PAST MEDICAL HISTORY: Significant for atrial fibrillation, hypertension, congestive heart failure, and altered mental status. MEDICATIONS: At home include Cordarone, Lasix, Lopressor, and Xarelto. ALLERGIES: NO KNOWN DRUG ALLERGIES. FAMILY HISTORY: Noncontributory. SOCIAL HISTORY: Per the patient's , she reports no smoking or EtOH use. REVIEW OF SYSTEMS: A 12-point review of systems was obtained more from the patient's as the patient is not able to give a good history, positive for altered mental status, positive for weakness and lethargy. Other systems reportedly negative. PHYSICAL EXAMINATION: GENERAL: The patient is seen in his room in the CCU. He is awake and answering questions but not making much sense and not able to give a good history. VITAL SIGNS: He is afebrile with a temperature of 98.7, pulse 92, respirations 17, blood pressure 118/62. HEENT: His head is normocephalic with no obvious trauma. NECK: Supple. There is no adenopathy noted. CARDIAC: Shows a currently regular rate. There is some mild peripheral edema noted. ABDOMEN: Soft, nontender, nondistended. There is no hepatosplenomegaly or CVA tenderness. LUNGS: Show slightly decreased inspiratory effort. : Phallus is normal. There is a Coon catheter in place draining clear urine with some slight blood tinge in the tube. Scrotum is normal. Testes are bilaterally descended, nontender, no masses. Epididymides are normal. EXTREMITIES: There is 1+ pitting edema. No apparent cyanosis. LABORATORY DATA: On laboratory exam, urinalysis showed large blood, negative nitrites, too numerous to count rbcs, 1 to 3 wbcs, positive protein, GFR greater than 60, creatinine kinase markedly elevated, elevated CPK MB, troponin normal. WBC count has been normal. On radiologic exam, no pertinent urologic x-rays were done. IMPRESSION AND PLAN: This is a 71-year-old male with acute altered mental status, appears to have likely myoglobinemia and myoglobinuria as he was lying on the floor for over 12 hours. Plan will be to check a urine culture. The patient should be treated with intravenous hydration and should be seen by Nephrology to prevent further kidney injury from myoglobinemia and myoglobinuria. His renal function is currently normal. When the patient's mental status has improved and the patient is more awake and ambulatory, we would recommend Coon be removed for a voiding trial. There is some evidence of hematuria which is likely traumatic from the Coon catheter placement and the patient has a history of being on blood thinners. The patient does not appear to have any acute urologic issue, but I would recommend urologic followup after this acute episode resolves to check on his voiding and see if hematuria does persist, he should have a full evaluation. I do not think the hematuria is contributing to his acute problem of altered mental status and the fall that he suffered. Thank you for allowing me to participate in care of this patient. I will follow him with you. Te Glover MD
--- NOTE | 2017-07-17 08:49 | PN ---
DATE: 07/17/2017 PULMONARY PROGRESS NOTE SUBJECTIVE: The patient appears comfortable this morning. He is not short of breath at rest. He is certainly more responsive to questions, and my physical exam this morning. PHYSICAL EXAMINATION: VITAL SIGNS: Temperature is 98.5, pulse is 81, respirations are 20, and blood pressure is 147/78. Oxygen saturation on room air is 98%. HEENT: Normocephalic and atraumatic. NECK: No JVD. CARDIOVASCULAR: Systolic ejection murmur at the lower left sternal border. No S3 gallop. LUNGS: Clear bilaterally. EXTREMITIES: Mild edema is noted in both legs. There is no cyanosis. There is no clubbing. The calves are nontender to palpation. There is less swelling of his right upper extremity. GASTROINTESTINAL: Abdomen is soft, nontender and nondistended. Bowel sounds are positive. SKIN: Healing excoriations on the patient's right arm/leg and right hip. No rashes. NEUROLOGIC: Exam is limited at the present time. IMPRESSION 1. Rule out cerebrovascular accident. 2. Frequent falls. 3. Rhabdomyolysis. 4. Influenza A positivity. 5. Chronic cardiac arrhythmias. 6. Shortness of breath (intermittent). PLAN: The patient appears comfortable this morning. He is not short of breath at rest. He is certainly more responsive to questions, and my physical exam this morning. On physical exam, his lungs remain clear. Oxygen saturation on room air is 98%. I will certainly continue with the aspiration precautions for now. I would also continue with the antibiotic coverage as per infectious disease. Input by Dr. Perez is noted. Neurologic and psychiatric evaluations are also noted. The patient does appear to be slowly improving. He will need extensive physical therapy. I will discuss the above with Dr. Mccloud. Srini De La Rosa MD [facility]
[2017-07-17] MEDS: Promethazine DM 6.25 mg-15 mg/5 ml Syrup PO SCH ×3 (12:25→17:25)
[2017-07-17] MEDS: Sodium Chloride 0.9% 1,000 ML IV SCH ×2 (12:43→21:17)
--- NOTE | 2017-07-17 13:17 | PN ---
DATE: NEUROLOGY PROGRESS NOTE SUBJECTIVE: The patient is lying on the bed in no acute distress. Denies having any headache or dizziness. He does have significant coughing. PHYSICAL EXAMINATION: VITAL SIGNS: His blood pressure is 147/78, heart rate is 81 per minute, breathing at the rate of 16 per minute, temperature is 98.5 degrees Fahrenheit. HEENT: Normocephalic and atraumatic. NECK: Supple. There are no carotid bruits. LUNGS: Clear. CARDIOVASCULAR SYSTEM: S1 and S2 audible. No murmurs. ABDOMEN: Soft and nontender. Bowel sounds present. NEUROLOGIC: Mental status: The patient is awake. He follows all simple commands. He is oriented to place, year and person. He does have mild dysarthria. Cranial nerve examination, pupils are 3 mm bilaterally, reactive to light. Visual cote are full. Extraocular movements are intact. There is decreased nasolabial fold on the right side. Palate is upgoing bilaterally. Tongue is midline. Motor examination: Tone is normal. Power on the right side is +3/5, power in the left-sided 4-5/5. Plantars are downgoing bilaterally. LABORATORY DATA: Reviewed. WBC 6.9, hemoglobin 12.1, hematocrit 36.4 and platelets of 164. His sodium is 139, potassium 3.6, chloride 106, carbon dioxide content of 28, BUN of 13, creatinine of 0.8 and glucose of 101. His creatine kinase 2312. His AST and ALT are both elevated. IMPRESSION: 1. Status post altered mental status. 2. Right hemiparesis, which is likely secondary to a small cerebrovascular accident involving the brainstem. 3. Cough. 4. Rhabdomyolysis. RECOMMENDATIONS: 1. The patient had an electroencephalogram done, which is normal. 2. The patient to have serum ammonia level done. 3. The patient to have physical therapy. 4. The patient will be continued on Xarelto for his underlying atrial fibrillation. 5. Please continue other treatment and supportive care. Thank you for the opportunity to participate in the care of this patient. Aileen Quijano MD
--- NOTE | 2017-07-17 14:15 | PN ---
DATE: 07/17/2017 CARDIOLOGY FOLLOWUP SUBJECTIVE: The patient is in no acute distress. PHYSICAL EXAMINATION: VITAL SIGNS: Blood pressure 147/78 and heart rate is in the 80s. NECK: Negative JVD. LUNGS: Without rates. HEART: Reveals S1 and S2. EXTREMITIES: Without edema. LABORATORY DATA: Hemoglobin is 12.1. BUN and creatinine are unremarkable. IMPRESSION: 1. Altered mental status. 2. History of atrial fibrillation treated with ablation. 3. Lethargy. 4. Mild hypertension. PLAN: Given these findings, the patient is hemodynamically stable, we will discontinue telemetry today. Earl Schwartz MD
--- NOTE | 2017-07-17 15:03 | PN ---
DATE: SUBJECTIVE: I saw him resting comfortable in bed. He slept well last night. The is sleeping in the other bed. He is arousable. He tells me he is doing well. He did not know where he was this morning. He has confusion from time to time, understanding to get out of bed to chair yesterday, which is great, I like that everyday. He is eating and he is moving a little bit better. The tells me he is doing better. Finally, he is improving. He has been seen by Neurology, Cardiology, Infectious Disease, Psychiatry, and Pulmonary. PHYSICAL EXAMINATION: VITAL SIGNS: 98.5 temp, 81 pulse, 147/78 blood pressure, and 97% O2 sat on 2 L nasal cannula. HEENT: Head is atraumatic and normocephalic. Throat is moist. NECK: Supple. HEART: Regular rate. LUNGS: Decreased breath sounds bilaterally, poor inspiration, but clear to auscultation. No wheezes, no rhonchi, and no rales. ABDOMEN: Soft and nontender. Positive bowel sounds. Morbidly obese. No guarding. No rebound. No CVA tenderness. EXTREMITIES: Have trace to +1 edema bilaterally. He can move the legs better. He is still weak, he is still in and out of it mentally from time to time. MEDICATIONS: He is on Ativan, Bactroban, Cordarone, Ecotrin, Lipitor, Lopressor, Phenergan, Seroquel, IV fluids, Tamiflu, and Xarelto. There was a question of whether he will get a spinal tap, but Neurology said no. He has a 98.5 temp, 81 pulse, 147/78 blood pressure, and 97% O2 sat on room air. LABORATORY DATA: He has a white count of 6.9, 12.1 hemoglobin, 36.4 hematocrit with 164 platelets. He has a 139 sodium, potassium is 3.6, BUN is 30, creatinine 0.8, GFR is greater than 60, sugar is 101, calcium is 7.8, total bilirubin is 1.4, AST is 114, better, ALT is 60, better, and alkaline phosphatase 55, better. His total creatine kinase was at 9745, is now down to 2312, which is a great difference, still 10 folds times than what it should be, but improved. I went over the notes of the consults. I had also discussed with the at length. I do think he needs physical therapy. She would like to take him back to [place] due to subacute rehab there. She said she will put him in the back of the car and put a diaper on him and drive. I do not know if that is the best scenario for him, he might be able to do that in the ambulance or an [facility], I do not know if her insurance will cover that. Otherwise, we may try the TCU, get him a little bit better, but we cannot take the drive home. He has change in mentation, rhabdomyolysis. He had viral illness with influenza, atrial fibrillation, back on Xarelto. Continue with aggressive treatment and care. Alejo Mccloud DO
--- NOTE | 2017-07-17 17:11 | CP.PCM.PCO ---
Physician Communication Note - Physician Communication Note Physician Communication Note: due to a high volume of pt, pt will be f/u tomorrow
[2017-07-18 06:22] LABS: HEMATOCRIT 35.9 % (42.0-52.0); MEAN CELL VOLUME 89.8 fl (80.0-105.0); MEAN CORPUSCULAR HEMOGLOBIN 29.8 pg (25.0-35.0); MEAN CORPUSCULAR HGB CONC 33.1 g/dl (31.0-37.0); MEAN PLATELET VOLUME 9.3 fl (7.0-11.0); RED CELL DISTRIBUTION WIDTH 13.9 % (11.5-14.5); WHITE BLOOD COUNT 6.7 10^3/ul (4.5-11.0)
[2017-07-18 06:43] LABS: ALB/GLOB RATIO 1.1 (1.1-1.8); ALKALINE PHOSPHATASE 58 U/L (38-126); ALT/SGPT 59 U/L (7-56); AST/SGOT 90 U/L (17-59); BILIRUBIN,TOTAL 1.2 mg/dL (0.2-1.3); BLOOD UREA NITROGEN 14 mg/dL (7-21); CALCIUM 7.9 mg/dL (8.4-10.5); CARBON DIOXIDE 28 mmol/L (21-33); CHLORIDE 108 mmol/L (98-107); GFR AFRICAN-AMERICAN > 60; GLUCOSE,RANDOM 95 mg/dL (70-110); POTASSIUM 3.5 mmol/L (3.6-5.0); SODIUM 141 mmol/L (132-148); TOTAL PROTEIN 5.1 g/dL (5.8-8.3)
[2017-07-18 07:13] LABS: TROPONIN I < 0.01 ng/mL
--- NOTE | 2017-07-18 08:14 | PN ---
DATE: 07/18/2017 SUBJECTIVE: The patient appears comfortable this morning. He is not short of breath at rest. OBJECTIVE: VITALS: Temperature is 98.3, pulse is 78, respirations 19, blood pressure 131/76. Oxygen saturation on nasal cannula is 94% to 99%. HEENT: Normocephalic, atraumatic. NECK: No JVD. CARDIOVASCULAR: Systolic ejection murmur at the lower left sternal border. No S3 gallop. LUNGS: Clear bilaterally. EXTREMITIES: Mild edema is noted in both lower extremities. There is no cyanosis or clubbing. The calves are nontender to palpation. There is less swelling of his right upper extremity. GI: Abdomen is soft, nontender, and nondistended. Bowel sounds are positive. SKIN: Healing excoriations on the patient's right arm/leg, and right hip. No rashes. NEUROLOGIC: Exam limited to present time. IMPRESSION 1. Rule out cerebrovascular accident. 2. Frequent falls. 3. Rhabdomyolysis. 4. Influenza A positivity. 5. Chronic cardiac arrhythmias. 6. Shortness of breath (intermittent). PLAN: The patient appears comfortable this morning. He is not short of breath at rest. I did discuss the case with the (at bedside) at length. The said that she thought her was slowly improving, but certainly not at his baseline. He still has intermittent periods of shortness of breath - which I feel are probably neurologically and/or metabolically related. His lungs remain clear. There is no significant alveolar-arterial gradient. I would continue with the neurologic evaluation. Input by Dr. Quijano is noted. Input by Dr. Schwartz (Cardiology) is also noted. Clinical status of the patient is slowly improving overall. He remains guarded. I will discuss the above with Dr. Mccloud. Srini De La Rosa MD MTDD
--- NOTE | 2017-07-18 08:28 | EEG ---
ELECTROENCEPHALOGRAM REPORT DATE: 07/17/2017 INTRODUCTION: This is a digitally recorded EEG monitoring using standard EEG montages. BACKGROUND RHYTHM: The EEG shows a background activity of 8-9 Hz delta activity in parieto-occipital region. The EEG activity is bilaterally symmetrical and synchronous. There is attenuation of the background activity on eye opening. Drowsiness was noted by slowing of the background activity. Stage II sleep was noted by presence of symmetrical sleep spindles. ABNORMAL POTENTIALS: No spike, sharp waves, or focal slowing was seen. PHOTIC STIMULATION AND HYPERVENTILATION: Photic stimulation and hyperventilation were not performed. IMPRESSION: Normal electroencephalogram. No epileptiform activity is seen in this electroencephalogram recording. Aileen Quijano MD
[2017-07-18] MEDS: Promethazine DM 6.25 mg-15 mg/5 ml Syrup PO SCH ×3 (09:51→17:38)
[2017-07-18] MEDS: Sodium Chloride 0.9% 1,000 ML IV SCH (09:53)
--- NOTE | 2017-07-18 10:17 | PN ---
SUBJECTIVE: I spent some time this morning talking with case management filling out forms to try and get him on his way home to [place] whether the airline or by car. Today is the best day I have seen him. He is out of isolation for influenza. He is off the Tamiflu. MEDICATIONS: He is on Ativan; Bactroban cream; Cordarone; Ecotrin; Lipitor; Lopressor; Phenergan; Seroquel; IV fluids; Tamiflu, he is now off that; acetaminophen and Xarelto. PHYSICAL EXAMINATION: GENERAL: He is alert, much more appropriate, talking better. The said this is his baseline. He is back to his normal mental baseline. The right arm is very swollen although he is on Xarelto. We ordered duplex ultrasound of the right arm to look for clot, discussed that with the and the patient. VITAL SIGNS: He is 98.3 temp, 78 pulse, 131/76 blood pressure, 19 respiratory rate and 94% O2 sat on room air. HEENT: His head is atraumatic and normocephalic. HEART: Regular rate. LUNGS: Decreased breath sounds, but clear. ABDOMEN: Soft, morbidly obese. EXTREMITIES: +1/4 pitting edema and the right arm is very swollen, but he can move it definitely better than the other day. Restart physical therapy. We are checking his labs and CPK. He does need the IV fluids for the rhabdo and hopefully, get the CPK down to a normal number, we can stop the IV, may be diurese him a little bit. He is being seen by pulmonary, psychiatry, neurology, cardiology, urology and infectious disease. He has had change in mentation, does not have a stroke. He has rhabdomyolysis, influenza, chronic cardiac arrhythmias. He has a right arm swelling. He is very weak now. He needs now physical therapy. We have to try and get him stronger by Friday; hopefully, he can take a car ride home if the numbers are good and he is still improving. We will check his labs tomorrow. We are going to get him out of bed to chair and get his body moving. He is here for multiple reasons as described above, who is definitely improving. Alejo Mccloud DO [facility] # [id number] [facility]
--- NOTE | 2017-07-18 10:23 | PN ---
DATE: 07/18/2017 CARDIOLOGY FOLLOWUP SUBJECTIVE: The patient is sitting in bed eating breakfast, no issues. OBJECTIVE: VITAL SIGNS: Blood pressure is 131/76, the heart rate is in the 70s. NECK: Negative JVD. LUNGS: Without rales. HEART: Reveals S1 and S2. EXTREMITIES: Without edema. LABORATORY: His hemoglobin is 11.9. Chemistries: Potassium is 3.5, BUN and creatinine unremarkable. IMPRESSION: 1. Lethargy. 2. Hypertension. 3. History of paroxysmal atrial fibrillation, treated with ablation. 4. Altered mental status. Given these findings, the patient is hemodynamically stable. His heart rate remains in normal sinus rhythm. Earl Schwartz MD
--- NOTE | 2017-07-18 11:55 | CP.PCM.PN ---
Subjective - Date & Time of Evaluation Date of Evaluation: 07/18/17 Time of Evaluation: 09:40 - Subjective Subjective: Comfortable, less right arm pain, moving the arm a little bit better today, a little more awake today compared to previous days. No fevers overnight. Objective - Vital Signs/Intake and Output Vital Signs (last 24 hours): Temp Pulse Resp BP Pulse Ox 98.3 F 78 19 131/76 94 L 07/18/17 05:57 07/18/17 05:57 07/18/17 05:57 07/18/17 05:57 07/18/17 05:57 Intake and Output: 07/18/17 07/18/17 06:59 18:59 Intake Total 180 Output Total 700 Balance -520 - Medications Medications: Current Medications Amiodarone HCl (Cordarone) 200 mg PO BID [facility] Last Admin: 07/17/17 17:26 Dose: 200 mg Aspirin (Ecotrin) 81 mg PO DAILY [facility] Last Admin: 07/17/17 12:25 Dose: 81 mg Atorvastatin Calcium (Lipitor) 80 mg PO DIN [facility] Last Admin: 07/17/17 17:25 Dose: 80 mg Sodium Chloride (Sodium Chloride 0.9%) 1,000 mls @ 80 mls/hr IV .[id number] [facility] Last Admin: 07/17/17 21:17 Dose: 80 mls/hr Lorazepam (Ativan) 0.25 mg PO TID PRN; Protocol PRN Reason: anxiety, restlessness, Last Admin: 07/17/17 21:18 Dose: 0.25 mg Metoprolol Tartrate (Lopressor) 25 mg PO BID [facility] Last Admin: 07/17/17 17:25 Dose: 25 mg Mupirocin (Bactroban Ointment) 0 gm TOP BID [facility] Last Admin: 07/17/17 17:27 Dose: 1 applic Oseltamivir Phosphate (Tamiflu Cap) 75 mg PO BID [facility] PRN Reason: Protocol Stop: 07/18/17 12:36 Last Admin: 07/17/17 17:26 Dose: 75 mg Promethazine HCl/Dextromethorphan (Phenergan Dm Syrup) 5 ml PO TID [facility] Stop: 07/30/17 18:01 Last Admin: 07/17/17 17:25 Dose: 5 ml Quetiapine Fumarate (Seroquel) 12.5 mg PO HS [facility] PRN Reason: Protocol Last Admin: 07/17/17 21:18 Dose: 12.5 mg Rivaroxaban (Xarelto) 20 mg PO DIN DAT PRN Reason: Protocol Last Admin: 07/17/17 17:26 Dose: 20 mg - Labs Labs: 07/18/17 06:00 07/17/17 05:30 PT 16.7 SECONDS (9.4-12.5) H 07/13/17 09:11 INR 1.51 (0.93-1.08) H 07/13/17 09:11 APTT 31.6 Seconds (25.1-36.5) 07/13/17 09:11 - Constitutional Appears: Non-toxic - Head Exam Head Exam: NORMAL INSPECTION - ENT Exam ENT Exam: Mucous Membranes Moist - Neck Exam Neck Exam: absent: Meningismus - Respiratory Exam Respiratory Exam: Decreased Breath Sounds - Cardiovascular Exam Cardiovascular Exam: +S1, +S2 - GI/Abdominal Exam GI & Abdominal Exam: Soft. absent: Tenderness - Extremities Exam Additional comments: right upper arm with dressings in place Assessment and Plan - Assessment and Plan (Free Text) Plan: Assessment Sepsis due to systemic viral illness with Influenza with associated myositis, rhabdomyolysis R/O encephalitis associated with Influenza (although no findings suggestive on MRI of the brain), slowly improving R/O cerebrovascular accident with right sided weakness HTN obesity with BMI 37 history of atrial fibrillation S/P ablation, on anticoagulation Plan S/P 5 days of Tamiflu continue to trend CPK levels reviewed MRI brain which did not show acute findings - follow up further Neurology recommendations (as per Neuro, may have CVA of area of brainstem) discussed with Dr. Mccloud will continue to monitor clinically
--- NOTE | 2017-07-18 16:30 | PN ---
NEUROLOGY PROGRESS NOTE SUBJECTIVE: The patient is sitting on the chair, in no acute distress. Denies having any headache or dizziness. PHYSICAL EXAMINATION VITAL SIGNS: His blood pressure is 140/70, heart rate is 90 per minute, breathing at the rate of 16 per minute, temperature is 98.3 degrees Fahrenheit. HEENT: Head is normocephalic, atraumatic. NECK: Supple. There are no carotid bruits. LUNGS: Clear. CARDIOVASCULAR SYSTEM: S1 and S2 are audible. No murmurs. ABDOMEN: Soft, nontender. Bowel sounds are present. NEUROLOGY: Mental status: The patient is awake and alert, oriented to time, place and person. There is mild dysarthria. Cranial nerve examination: Pupils are 3 mm, bilaterally reactive to light. Visual cote are full. Extraocular movements are intact. There is mild decreased nasolabial fold on the right side. Tongue is midline. Motor examination: Tone is normal. There is mild right hemiparesis. Power in the right upper extremity is 3/5. Power in the right lower extremity is 3 to 4/5. Plantars downgoing bilaterally. LABORATORY DATA: Labs reviewed, which shows WBC of 6.7, hemoglobin 11.9, hematocrit 35.9 and platelets of 185. Sodium is 141, potassium 3.5, chloride 108, carbon dioxide content of 28, BUN of 14, creatinine 0.8 and glucose of 95. IMPRESSION: 1. Right hemiparesis, which is likely secondary to a small brainstem stroke, which is not visible on the MRI. 2. Status post altered mental status. 3. Rhabdomyolysis. RECOMMENDATION: 1. The patient's mental status seems to be better. He had serum ammonia level done, which is 12. 2. The patient is showing improvement in the right-sided weakness. 3. The patient to have physical therapy. 4. The patient to be continued on Xarelto for his underlying atrial fibrillation. 5. Please continue other treatment and supportive care. Thank you for the opportunity to participate in the care of this patient. Aileen Quijano MD
--- NOTE | 2017-07-18 17:53 | US ---
PROCEDURE: Right upper extremity venous US CLINICAL HISTORY: Arm pain and swelling Evaluate for deep venous thrombosis. PHYSICIAN(S): Earl Sarmiento M.D FINDINGS: The visualized rightinternal jugular vein is sonographically normal and compressible. No evidence of obstruction or thrombus is seen. The visualized segments of the right subclavian vein are patent with normal waveforms. No sonographic evidence of obstruction or thrombosis is seen. The visualized deep venous system of the proximal right upper extremity is sonographically normal and compressible. IMPRESSION: 1. No sonographic evidence for deep venous thrombosis in the visualized segments of the right upper extremity.
--- NOTE | 2017-07-18 18:47 | PN ---
FOLLOWUP NOTE SUBJECTIVE: The patient was followed up today. Discussed with the patient's . As per , the patient went back to his normal level of functioning from the mental standpoint. The patient presented to be alert. At times, the patient could be irritable and loud, but as per , this presentation has consistent for the past couple of years. The patient denied being depressed. Denied thoughts of harming himself or others. Denied intents or plan. PHYSICAL EXAMINATION: VITAL SIGNS: Stable. Temperature 97.8, pulse is 87, blood pressure 125/70, respirations 19, oxygen saturation is 94. MEDICATIONS: Reviewed. Seroquel this account underwriter initiated, but it was given only as needed and the patient did not need it. LABORATORY DATA: Reviewed as well. Hemoglobin and hematocrit are 11.9 and 35.9. The patient has 874 and creatinine kinase is trending down. Urinalysis most recent was 10/14 and influenza was positive. MENTAL STATUS EXAMINATION: The patient presented to be alert, irritable. Intermittent eye contact. Speech at times loud. Mood described as not depressed. Affect was flat. Mood incongruent. Thought process seems to be concrete. Thought content: The patient denied visual, auditory or tactile hallucinations. Denied paranoid ideation. The patient seems to be suspicious at times. Insight and judgment are improving. Impulses are well controlled. IMPRESSION: Most likely, the patient was in delirium stage, which is clearing. The patient has multiple medical issues. Please see Dr. Mccloud's note for more detailed information. PLAN: Continue current management. Seroquel as needed if the patient will be confused. As per , the patient is doing much better and went back through his previous level of functioning. The patient is seen by Neurology team as well as medical team and Infectious Disease team. The patient seems to be posed no imminent danger to self or others. This account underwriter will sign off. Should you have any questions, give a call to psychiatrist and call over the weekend, but meanwhile, if the patient is improving, there is no contraindication for the patient to be discharged. Thank you very much for letting me participate in the care of your patient. Should you have any questions, give me a call back. Dayna Duron MD [facility] # [id number]
[2017-07-19 07:18] LABS: HEMATOCRIT 36.9 % (42.0-52.0); MEAN CELL VOLUME 88.9 fl (80.0-105.0); MEAN CORPUSCULAR HEMOGLOBIN 29.9 pg (25.0-35.0); MEAN CORPUSCULAR HGB CONC 33.6 g/dl (31.0-37.0); MEAN PLATELET VOLUME 9.4 fl (7.0-11.0); RED CELL DISTRIBUTION WIDTH 13.8 % (11.5-14.5); WHITE BLOOD COUNT 7.2 10^3/ul (4.5-11.0)
[2017-07-19 07:20] LABS: ALKALINE PHOSPHATASE 69 U/L (38-126); ALT/SGPT 65 U/L (7-56); AST/SGOT 78 U/L (17-59); BILIRUBIN,TOTAL 1.2 mg/dL (0.2-1.3); BLOOD UREA NITROGEN 13 mg/dL (7-21); CARBON DIOXIDE 26 mmol/L (21-33); CHLORIDE 108 mmol/L (98-107); GFR AFRICAN-AMERICAN > 60; GLUCOSE,RANDOM 96 mg/dL (70-110); POTASSIUM 3.6 mmol/L (3.6-5.0); SODIUM 140 mmol/L (132-148); TOTAL PROTEIN 5.3 g/dL (5.8-8.3)
[2017-07-19] MEDS: Promethazine DM 6.25 mg-15 mg/5 ml Syrup PO SCH ×3 (09:57→17:19)
--- NOTE | 2017-07-19 10:55 | PN ---
SUBJECTIVE: He is actually doing quite well this morning. He slept well. He is alert. He is talking. He is eating. He is hungry. He has got out of bed to a chair today, and he stood and pivoted well. He might be able to go to subacute rehab on Friday in [place] if it works out well; the said that is her wishes. He is on Ativan, Bactroban cream, Cordarone, Ecotrin, Lipitor, Lopressor, Phenergan, Seroquel, IV fluids and Xarelto. He had venous Dopplers of his right arm because it was swollen the other day, it is better today and it was negative. PHYSICAL EXAMINATION: VITAL SIGNS: He has a 97.7 temp, 80 pulse, 149/94 blood pressure, 20 respiratory rate and 97% O2 sat on 2 L nasal cannula. GENERAL: He is awake. He is alert. He is comfortable. He is aware, much better mentally; says he is back to normal. HEART: Regular rate. LUNGS: Decreased breath sounds, but clear with poor inspiration. No wheezes. No rhonchi. No rales. ABDOMEN: Soft, obese, nontender. Positive bowel sounds. No guarding. No rebound. No CVA tenderness. EXTREMITIES: Trace edema, not terrible. Right arm is swollen, but not as bad as it was the other day and the Dopplers were negative. LABORATORY DATA: He has a 7.2 white count, 12.4 hemoglobin, 36.9 hematocrit with 218 platelets. He has a 140 sodium, potassium is 3.6, BUN is 13, creatinine 0.8, GFR is greater than 60, sugar is 96, calcium is 8, total bili is 1.2, AST is 78, ALT is 65 and alkaline phosphatase 69. Total creatine kinase is down to 764 which is great. Total protein is 5.3. He is being seen by psychiatry, infectious disease, neurology, cardiology, pulmonology. He has come a long way. He was very ill when he got here. He had multiple problems. He had severe rhabdomyolysis, AFib, fall, mentally confused, change in mental status and he is coming around nicely. He had sepsis through the viral illness, influenza, myositis, rhabdomyolysis, possible encephalitis which has improved, hypertension, obesity. IV fluids for right now, hopefully physical therapy and then subacute rehab in [place] on Friday would be the plan. He might be able to take a road trip with his , looking forward to that. Alejo Mccloud DO [facility]
--- NOTE | 2017-07-19 11:30 | PN ---
PULMONARY PROGRESS NOTE DATE: 07/19/2017 SUBJECTIVE: The patient was seen and examined at bedside. His is present at bedside. He reports feeling better. He is less short of breath. PHYSICAL EXAMINATION: VITAL SIGNS: Temperature 98, pulse 78, respirations 20, blood pressure 130/70, and oxygen saturation on room air is 94%. HEAD, EARS, NOSE, AND THROAT: Within normal limits. NECK: Supple with no jugular vein distention. CHEST: Symmetrical. HEART: S1 and S2. No S3. A 2/6 systolic ejection murmur. LUNGS: Clear bilaterally. EXTREMITIES: Mild edema. No cyanosis. GASTROINTESTINAL: Soft and nontender. No organomegaly. SKIN: Healing excoriations. No rashes. NEUROLOGIC: No focal deficits. ASSESSMENT: 1. Influenza A positive. 2. Rhabdomyolysis. 3. Frequent falls, rule out cerebrovascular accident. PLAN: The patient appears comfortable. He is not short of breath. He shows slow improvement. The lungs are clear. He does not have influenza associated pulmonary complications. We will follow intermittently. Herbert Jeong MD
--- NOTE | 2017-07-19 20:26 | PN ---
NEUROLOGY PROGRESS NOTE DATE: SUBJECTIVE: The patient is lying on the bed, in no acute distress. Denies having any headache or dizziness. Still have weakness on the right side. PHYSICAL EXAMINATION VITAL SIGNS: Blood pressure is 149/94, heart rate is 80 per minute, breathing at a rate of 16 per minute, temperature 97.7 degree Fahrenheit. HEENT: Normocephalic and atraumatic. NECK: Supple. There are no carotid bruits. LUNGS: Clear. CARDIOVASCULAR SYSTEM: S1 and S2 audible. No murmurs. ABDOMEN: Soft and nontender. Bowel sounds present. NEUROLOGIC: Mental status: The patient is awake, alert and oriented to time, place and person. Speech is fluent. Naming and repetition is normal. Memory and cognition are intact. Cranial nerve examination: Pupils are 3 mm bilaterally, reactive to light. Visual cote are full. Extraocular movements are intact. There is a slight decreased nasolabial fold on the right side. Motor examination: Tone is normal. There is right-sided hemiparesis. Power in the right upper extremity is 2-3/5. Power in the right lower extremity is 3/5. Power in the left side is 5/5. [id number] shows no dysmetria. LABORATORY DATA: Reviewed, shows WBC of 7.2, hemoglobin 12.4, hematocrit 36.9 and platelets of 218. Sodium is 140, potassium 3.6, chloride 108, carbon dioxide 26, BUN of 13, creatinine 0.8 and glucose of 96. His creatinine kinase is 764. IMPRESSION: 1. Right hemiparesis likely secondary to a small brainstem infarction possibly in the medulla, not visible on the MRI. 2. Status post altered mental status. 3. Rhabdomyolysis. RECOMMENDATION: 1. The patient's mental status is at baseline. 2. The patient still has right hemiparesis; however, it is slowly getting better. 3. The patient to have physical therapy. 4. The patient's CPK level has improved. 5. The patient to be continued on Xarelto for his underlying atrial fibrillation. 6. The patient will require rehabilitation placement. 7. Please continue supportive care and the treatment. 8. I have discussed the patient's prognosis and current findings with his . Thank you for the opportunity to participate in the care of this patient. Aileen Quijaon MD
--- NOTE | 2017-07-19 21:14 | PN ---
DATE: 07/19/2017 SUBJECTIVE: The patient is in bed in no acute distress, nontoxic. PHYSICAL EXAMINATION: VITAL SIGNS: Temperature is 98, blood pressure is 120/78, respiratory rate of 20 and heart rate of 80. HEENT: Unremarkable. NECK: Supple. LUNGS: Decreased breath sounds. HEART: Normal S1 and S2. ABDOMEN: Soft and nontender. LABORATORY DATA: Laboratory examination reveals a white count of 7.2, hemoglobin of 12 and platelets of 218. Chemistries are noted. The patient's BUN of 13, creatinine of 0.8, and microbiology is noted. ASSESSMENT AND PLAN: This is a 71-year-old with sepsis due to systemic viral illness and with influenza associated myositis and rhabdomyolysis and encephalitis. According to the patient's , who happens to be at the bedside this morning when I saw the patient, she states that he is pretty much back to his baseline mental status and he is overall improving. Currently, the patient is on no antibiotics and has completed the Tamiflu therapy. Eddie Mckenzie MD
[2017-07-20 08:01] LABS: HEMATOCRIT 38.1 % (42.0-52.0); MEAN CELL VOLUME 89.4 fl (80.0-105.0); MEAN CORPUSCULAR HEMOGLOBIN 29.8 pg (25.0-35.0); MEAN CORPUSCULAR HGB CONC 33.3 g/dl (31.0-37.0); MEAN PLATELET VOLUME 9.4 fl (7.0-11.0); RED CELL DISTRIBUTION WIDTH 13.8 % (11.5-14.5); WHITE BLOOD COUNT 7.4 10^3/ul (4.5-11.0)
[2017-07-20 08:14] LABS: ALB/GLOB RATIO 1.1 (1.1-1.8); ALKALINE PHOSPHATASE 72 U/L (38-126); ALT/SGPT 70 U/L (7-56); AST/SGOT 67 U/L (17-59); BILIRUBIN,TOTAL 1.3 mg/dL (0.2-1.3); BLOOD UREA NITROGEN 14 mg/dL (7-21); CALCIUM 8.3 mg/dL (8.4-10.5); CARBON DIOXIDE 28 mmol/L (21-33); CHLORIDE 107 mmol/L (95-110); GFR AFRICAN-AMERICAN > 60; GLUCOSE,RANDOM 91 mg/dL (70-110); POTASSIUM 3.7 mmol/L (3.6-5.0); SODIUM 140 mmol/L (132-148); TOTAL PROTEIN 5.4 g/dL (5.8-8.3)
[2017-07-20] MEDS: Promethazine DM 6.25 mg-15 mg/5 ml Syrup PO SCH ×3 (09:21→17:11)
--- NOTE | 2017-07-20 13:17 | PN ---
DATE: SUBJECTIVE: I saw him resting comfortably in bed. He is much more alert. He is talking better. His is with him tells me he is back to his old baseline, but his right arm quite swollen. I am going to stop his IV fluids today. He did well with his blood test. MEDICATIONS: He is on Ativan as needed, Bactroban cream, Cordarone, Ecotrin, Lipitor, Lopressor, Norvasc, Seroquel, and Xarelto. He is doing much better. He is just weak. He will need to go to [facility]. The want to him by car to a [facility] in [place]. I will get case management to see if they could arrange for a [facility] in [place] that will take him. He can travel by car, I believe he is at that stage and he should do okay. PHYSICAL EXAMINATION: VITAL SIGNS: Temperature 98.3, pulse 78, blood pressure 124/78, respiratory rate 22, and 95% saturation on room air. HEENT: Head is atraumatic and normocephalic. He is very alert. He is comfortable. No pain. HEART: Regular rate. LUNGS: Clear to auscultation. ABDOMEN: Soft and obese. EXTREMITIES: With trace edema of the legs. His right arm is very swollen, but the Doppler were negative. I stopped the IV fluids. We will elevate the arms. He is being seen by Infectious Disease, Neurology, Pulmonology, Psychiatry, Cardiology. He has systemic viral illness secondary to rhabdomyolysis and possible encephalitis. He did much better. He is improving. I believe tomorrow is his day to leave. LABORATORY DATA: Sodium 140, potassium 3.7, BUN 14, creatinine 0.8, GFR is greater than 60, calcium is 8.3, total bilirubin 1.3, AST 67, ALT 70, alkaline phosphatase 72, his total creatine kinase is down to 393, almost normal. His white count is 7.4, hemoglobin 12.7, hematocrit 38.1, and platelets are 219. The is on board with this plan. She says she can handle it and do this, and that is what they want to do. I will discuss with the case management tomorrow, but traveling to [place] by car and then take him straight to [facility]. Alejo Mccloud DO [facility] # [id number]
[2017-07-20 16:18] VITALS: RESP 20
--- NOTE | 2017-07-20 19:13 | PN ---
DATE: 07/20/2017 SUBJECTIVE: The patient is in bed in no acute distress, nontoxic. PHYSICAL EXAMINATION: VITAL SIGNS: Temperature is 98, blood pressure is 120/70, respiratory rate of 22. HEENT: Unremarkable. NECK: Supple. LUNGS: Have decreased breath sounds. HEART: Normal S1 and S2. ABDOMEN: Soft. LABORATORY EXAMINATION: Reveals a white count of 7.4, hemoglobin of 12. Chemistries reveals a BUN of 14, creatinine of 0.8. Urinalysis is noted and serology is noted. Influenza is positive. ASSESSMENT AND PLAN: A 71-year-old with sepsis due to influenza presenting with myositis, rhabdomyolysis, encephalitis, and the patient has Bacteroides. Has a baseline mental status essentially, and currently off of antibiotics, has completed the Tamiflu therapy. The patient is at risk for developing nosocomial infections. Eddie Mckenzie MD
[2017-07-21 06:48] LABS: HEMATOCRIT 38.5 % (42.0-52.0); MEAN CELL VOLUME 88.9 fl (80.0-105.0); MEAN CORPUSCULAR HGB CONC 33.8 g/dl (31.0-37.0); MEAN PLATELET VOLUME 9.5 fl (7.0-11.0); RED CELL DISTRIBUTION WIDTH 13.8 % (11.5-14.5); WHITE BLOOD COUNT 7.6 10^3/ul (4.5-11.0)
[2017-07-21 07:11] LABS: ALB/GLOB RATIO 1.1 (1.1-1.8); ALKALINE PHOSPHATASE 75 U/L (38-126); ALT/SGPT 62 U/L (7-56); AST/SGOT 60 U/L (17-59); BILIRUBIN,TOTAL 1.2 mg/dL (0.2-1.3); BLOOD UREA NITROGEN 15 mg/dL (7-21); CALCIUM 8.1 mg/dL (8.4-10.5); CARBON DIOXIDE 28 mmol/L (21-33); CHLORIDE 108 mmol/L (98-107); GFR AFRICAN-AMERICAN > 60; GLUCOSE,RANDOM 96 mg/dL (70-110); POTASSIUM 3.8 mmol/L (3.6-5.0); SODIUM 140 mmol/L (132-148); TOTAL PROTEIN 5.4 g/dL (5.8-8.3)
--- NOTE | 2017-07-21 08:47 | PN ---
PULMONARY NOTE DATE: 07/21/2017 SUBJECTIVE: The patient appears comfortable this morning. He is not short of breath at rest. PHYSICAL EXAMINATION: VITAL SIGNS: Temperature is 97.6, pulse 81, respirations 20, blood pressure 126/81. Oxygen saturation on room air is 94-95%. HEENT: Normocephalic, atraumatic. No JVD. CARDIOVASCULAR: Systolic ejection murmur at the lower left sternal border. No S3 gallop. LUNGS: Clear bilaterally. EXTREMITIES: Mild edema is noted in both lower extremities. There is no clubbing or cyanosis. The calves are nontender to palpation. There remains mild to moderate swelling of his right upper extremity - overall less. GI: Abdomen is soft, nontender and nondistended. Bowel sounds are positive. SKIN: Healing excoriations on the patient's right arm/leg, and right hip. No rashes. NEUROLOGIC: Exam limited at the present time. IMPRESSION: 1. Rule out cerebrovascular accident. 2. Frequent falls. 3. Rhabdomyolysis. 4. Influenza A positivity. 5. Chronic cardiac arrhythmias. 6. Shortness of breath (intermittent). PLAN: The patient appears comfortable this morning. He is not short of breath at rest. I did discuss the case with the (at bedside) at length. The does confirm that her is slowly improving. His speech is certainly better. Upon review of the vitals data, it does appear that the patient still has intermittent periods of mild shortness of breath. Again, I think these periods of shortness of breath are either neurologically and/or metabolically related. His lungs remain clear on physical exam. There is no significant alveolar-arterial gradient. Inputs by Neurology and infectious disease are noted. The patient is certainly clinically improved - compared to the initial presentation. I will discuss the above with Dr. Mccloud. Srini De La Rosa MD [facility]
[2017-07-21] MEDS: Promethazine DM 6.25 mg-15 mg/5 ml Syrup PO SCH ×3 (10:34→18:09)
--- NOTE | 2017-07-21 12:35 | PN ---
DATE: 07/21/2017 SUBJECTIVE: The patient is seen in his room. He is awake and alert, and answering questions. His is present. He is recovering from a questionable CVA, possible encephalitis, and influenza infection. PHYSICAL EXAMINATION: VITAL SIGNS: He is afebrile, temperature of 98.1, pulse 85, blood pressure 140/86, and respirations 20. ABDOMEN: Benign. GENITOURINARY: Phallus is normal. There is a Coon catheter in place, draining clear colored urine. Scrotum is normal. Testes bilaterally descended, nontender, no masses. Epididymis are normal. LABORATORY DATA: GFR is greater than 60. Urinalysis last on 07/16/2017 showed 15-20 rbc's, which is improved from before when the Coon catheter had been placed. IMPRESSION AND PLAN: This is a 71-year-old male who was admitted with altered mental status, weakness, lethargy after lying on the floor for extended period of time. Urologically, the patient has had the Coon catheter in place. We are considering a voiding trial, however, the patient still with significant weakness. The plan is for him to be transferred to a rehabilitation center, possibly the patient is going to be driving home to [place]. My recommendation would be to leave the Coon catheter at this time. The patient should have a voiding trial during his rehabilitation. If he is unable to void adequately, the Coon catheter should be replaced. If the patient is going to remain here for a few more days, we can consider a voiding trial prior to him leaving, but I think he has had high risk for going back into urinary retention given his continued weakness and his mental status issues. I will discuss the plan with his medical attending, but for now, I would maintain the Coon catheter as he is going to have an extended trip back to [place]. I think the Coon should be removed when in rehabilitation for a voiding trial. Te Glover MD
--- NOTE | 2017-07-21 12:35 | PN ---
NEUROLOGY PROGRESS NOTE SUBJECTIVE: The patient is sitting on the chair, in no acute distress. Denies having any headache or dizziness. Said his right-sided weakness is improving. PHYSICAL EXAMINATION: VITAL SIGNS: His blood pressure is 140/86, heart rate is 85 per minute, breathing at a rate of 16 per minute, temperature is 98.1 degree Fahrenheit. HEENT: Normocephalic and atraumatic. NECK: Supple. There are no carotid bruits. LUNGS: Clear. CARDIOVASCULAR SYSTEM: S1 and S2 audible. No murmurs. ABDOMEN: Soft and nontender with bowel sounds present. NEUROLOGIC: Mental status: The patient is awake, alert, oriented to time, place and person. Speech is mildly dysarthric. Cranial nerve examination: Pupils are 3 mm bilaterally, reactive to light. Visual cote are full. Extraocular movements are intact. There is decrease nasolabial fold on the right side. Tongue is midline. Motor Examination: Tone is normal. There is right-sided hemiparesis. Power in the right upper extremity about proximally about 3/5 and distally 1-2/5. There is more impairment in wrist dorsiflexion. Power in the right lower extremity is 3-4/5. Power on the left side is 5/5. Plantar is downgoing bilaterally. LABORATORY DATA: Reviewed, shows WBC of 7.6, hemoglobin 13.0, hematocrit of 38.5 and platelets of 236. Sodium is 140, potassium 3.8, chloride 108, carbon dioxide content of 28, BUN of 15, creatinine 0.9 and glucose of 96. IMPRESSION: 1. Right hemiparesis likely secondary to a small brainstem infarction, possibly in the medulla, not visible on the MRI. 2. Status post altered mental status. 3. Rhabdomyolysis. RECOMMENDATION: 1. The patient to have physical therapy. 2. The patient also to have occupational therapy evaluation and possibly need a wrist splint. 3. The patient is to be continued on Xarelto for his underlying atrial fibrillation. 4. The patient's creatine kinase level is improving, it is 297 today. 5. The patient is a good rehabilitation candidate. 6. Please continue supportive care and other treatment. Thank you for the opportunity to participate in the care of this patient. Aileen Quijano MD
--- NOTE | 2017-07-21 12:43 | PN ---
DATE: SUBJECTIVE: Actually, I am hoping for discharge. He actually get out of bed yesterday from chair and walk to the door and back, which is about 10 to 15, may be 20 feet. His right arm is also less swollen. He is alert and talking. The is at bed. She wants to take him to [place] to subacute rehab there. There are some issues whether he can handle the car ride versus get a plane ride back to [place]. industrial services worker and telephonic nurse case manager were working on this. MEDICATIONS: He is on Ativan, Bactroban cream, Cordarone, Ecotrin, Lipitor, Lopressor, Norvasc, Seroquel, Tylenol, and Xarelto. He has got the [place] catheter in and I am reluctant to take the catheter out of him because if he goes for a long ride, it will be more convenient the catheter out when he gets to [place]. LABORATORY DATA: He has 7.6 white count, 13 hemoglobin, 38.5 hematocrit with 236 platelets. He had a 140 sodium, potassium is 3.8, BUN is 15, and creatinine 0.9. GFR is greater than 60. Sugar is 96, calcium is 8.1, total bili is 1.2, AST is 60, ALT is 62, and alk phos is 75. His total creatine kinase is down to 297, all those numbers are improving. He is mentally improving. He is getting stronger. I am hoping to work this out that we get him discharge hopefully back to subacute rehab in [place], but safely. He has rhabdomyolysis, influenza, possible encephalopathy, swelling of the right arm, and negative Doppler, which is improving. He had multiple physicians looking at him, Pulmonary, Infectious Disease, and Cardio. He also has systemic viral infection and we will see if case management and public health social worker can help get him back to [place] safely to subacute rehab there. Alejo Mccloud DO [facility]
--- NOTE | 2017-07-21 13:57 | CP.PCM.PN ---
Subjective - Date & Time of Evaluation Date of Evaluation: 07/21/17 Time of Evaluation: 10:35 - Subjective Subjective: No fevers, not in distress. Objective - Vital Signs/Intake and Output Vital Signs (last 24 hours): Temp Pulse Resp BP Pulse Ox 98.1 F 85 20 140/86 95 07/21/17 09:05 07/21/17 09:05 07/21/17 09:05 07/21/17 09:05 07/21/17 09:05 Intake and Output: 07/21/17 07/21/17 06:59 18:59 Intake Total 540 Output Total 1700 Balance -1160 - Medications Medications: Current Medications Acetaminophen (Tylenol 325mg Tab) 650 mg PO Q4H PRN PRN Reason: Headache Last Admin: 07/20/17 17:50 Dose: 650 mg Amiodarone HCl (Cordarone) 200 mg PO BID [facility] Last Admin: 07/20/17 17:12 Dose: 200 mg Amlodipine Besylate (Norvasc) 2.5 mg PO DAILY [facility] Last Admin: 07/20/17 09:21 Dose: 2.5 mg Aspirin (Ecotrin) 81 mg PO DAILY [facility] Last Admin: 07/20/17 09:23 Dose: 81 mg Atorvastatin Calcium (Lipitor) 80 mg PO DIN [facility] Last Admin: 07/20/17 17:12 Dose: 80 mg Lorazepam (Ativan) 0.25 mg PO TID PRN; Protocol PRN Reason: anxiety, restlessness, Last Admin: 07/17/17 21:18 Dose: 0.25 mg Metoprolol Tartrate (Lopressor) 25 mg PO BID [facility] Last Admin: 07/20/17 17:12 Dose: 25 mg Mupirocin (Bactroban Ointment) 0 gm TOP BID [facility] Last Admin: 07/20/17 17:13 Dose: 1 applic Promethazine HCl/Dextromethorphan (Phenergan Dm Syrup) 5 ml PO TID [facility] Stop: 07/30/17 18:01 Last Admin: 07/20/17 17:11 Dose: 5 ml Quetiapine Fumarate (Seroquel) 12.5 mg PO HS PRN; Protocol PRN Reason: confusion Last Admin: 07/19/17 21:08 Dose: 12.5 mg Rivaroxaban (Xarelto) 20 mg PO DIN [facility] PRN Reason: Protocol Last Admin: 07/20/17 17:12 Dose: 20 mg - Labs Labs: 07/21/17 06:10 07/21/17 06:10 PT 16.7 SECONDS (9.4-12.5) H 07/13/17 09:11 INR 1.51 (0.93-1.08) H 07/13/17 09:11 APTT 31.6 Seconds (25.1-36.5) 07/13/17 09:11 - Constitutional Appears: Non-toxic - Head Exam Head Exam: NORMAL INSPECTION - Neck Exam Neck Exam: absent: Meningismus - Respiratory Exam Respiratory Exam: Decreased Breath Sounds - Cardiovascular Exam Cardiovascular Exam: +S1, +S2 - GI/Abdominal Exam GI & Abdominal Exam: Soft. absent: Tenderness Assessment and Plan - Assessment and Plan (Free Text) Plan: Assessment Sepsis due to systemic viral illness with Influenza with associated myositis, rhabdomyolysis R/O encephalitis associated with Influenza (although no findings suggestive on MRI of the brain), slowly improving R/O cerebrovascular accident with right sided weakness HTN obesity with BMI 37 history of atrial fibrillation S/P ablation, on anticoagulation Plan S/P 5 days of Tamiflu continue to trend CPK levels reviewed MRI brain which did not show acute findings - follow up further Neurology recommendations (as per Neuro, may have CVA of area of brainstem) will continue to monitor clinically off antibiotics
--- NOTE | 2017-07-21 14:30 | PN ---
DATE: 07/21/2017 SUBJECTIVE: The patient is awake without distress. PHYSICAL EXAMINATION: VITAL SIGNS: Blood pressure 140/86, heart rate in the 80s. NECK: Negative JVD. LUNGS: Without rales. HEART: With S1, S2. EXTREMITIES: Without edema. LABORATORY DATA: Hemoglobin is 13. Chemistries are unchanged. IMPRESSION: 1. Status post altered mental status, which is improving. 2. History of atrial fibrillation, treated with ablation. The patient remains in normal sinus rhythm. 3. Sepsis. 4. Hypertension. PLAN: Given these findings, the patient is stable from a cardiac perspective for his trip back to [place]. Earl Schwartz MD
[2017-07-22 06:20] LABS: HEMATOCRIT 39.4 % (42.0-52.0); MEAN CELL VOLUME 89.3 fl (80.0-105.0); MEAN CORPUSCULAR HEMOGLOBIN 29.7 pg (25.0-35.0); MEAN CORPUSCULAR HGB CONC 33.2 g/dl (31.0-37.0); MEAN PLATELET VOLUME 9.6 fl (7.0-11.0); WHITE BLOOD COUNT 9.2 10^3/ul (4.5-11.0)
[2017-07-22 06:37] LABS: ALB/GLOB RATIO 1.1 (1.1-1.8); ALKALINE PHOSPHATASE 82 U/L (38-126); ALT/SGPT 57 U/L (7-56); AST/SGOT 50 U/L (17-59); BILIRUBIN,TOTAL 1.2 mg/dL (0.2-1.3); BLOOD UREA NITROGEN 17 mg/dL (7-21); CALCIUM 8.2 mg/dL (8.4-10.5); CARBON DIOXIDE 27 mmol/L (21-33); CHLORIDE 106 mmol/L (98-107); GFR AFRICAN-AMERICAN > 60; GLUCOSE,RANDOM 98 mg/dL (70-110); POTASSIUM 3.8 mmol/L (3.6-5.0); SODIUM 141 mmol/L (132-148); TOTAL PROTEIN 5.6 g/dL (5.8-8.3)
--- NOTE | 2017-07-22 08:37 | PN ---
DATE: 07/22/2017 PULMONARY PROGRESS NOTE SUBJECTIVE: The patient appears very comfortable at rest. He is not short of breath. PHYSICAL EXAMINATION: VITAL SIGNS: (Last noted in the computer): Temperature is 98.2, pulse is 80, respirations are 18, and blood pressure is 116/69. Oxygen saturation on room air is 95%. HEENT: Normocephalic and atraumatic. NECK: No JVD. CARDIOVASCULAR: Systolic ejection murmur at the lower left sternal border. No S3 gallop. LUNGS: Clear bilaterally. EXTREMITIES: Mild edema is noted in both lower extremities. There is no clubbing or cyanosis. The calves are nontender to palpation. There is less swelling to the right upper extremity. GASTROINTESTINAL: Abdomen is soft, nontender and nondistended. Bowel sounds are positive. SKIN: Healing excoriations on the patient's right arm/leg, and right hip. No rashes. NEUROLOGIC: Exam is limited at the present time. IMPRESSION 1. Rule out cerebrovascular accident. 2. Frequent falls. 3. Rhabdomyolysis. 4. Influenza A positivity. 5. Chronic cardiac arrhythmias. 6. Shortness of breath (intermittent) - resolving. PLAN: The patient appears very comfortable this morning. He is not short of breath at rest. He does state to feeling much, much better overall. I did discuss the case with the (at bedside) at length. She also confirms that her is getting much better as the days go on. I did review the vital signs from the past 24 hours. There have been no episodes of shortness of breath documented over the past 24 hours. Inputs by neurology and cardiology are also noted. The patient continues to slowly improve overall. I will discuss the above with Dr. Mccloud. Srini De La Rosa MD [facility]
[2017-07-22] MEDS: Promethazine DM 6.25 mg-15 mg/5 ml Syrup PO SCH ×3 (09:33→18:02)
--- NOTE | 2017-07-22 11:00 | PN ---
NEUROLOGY PROGRESS NOTE SUBJECTIVE: The patient is lying on the bed, in no acute distress. Denies having any headache or dizziness. PHYSICAL EXAMINATION: VITAL SIGNS: His blood pressure is 145/98, heart rate is 78 per minute, breathing at the rate of 16 per minute and temperature is 97.9 degree Fahrenheit. HEENT EXAM: Normocephalic and atraumatic. NECK: Supple. There are no carotid bruits. LUNGS: Clear. CARDIOVASCULAR SYSTEM EXAM: S1 and S2 audible. No murmurs. ABDOMEN: Soft and nontender. Bowel sounds present. NEUROLOGY EXAM: Mental status: The patient is awake, alert, oriented to time, place and person. Speech is mildly dysarthric. He follows all simple commands. Oriented x3. Cranial nerve examination: Pupils are 3 mm bilaterally, reactive to light. Visual cote are full. There is mildly decreased nasolabial fold on the right side. Palate is upgoing bilaterally and tongue is midline Motor examination: Tone is normal. There is right hemiparesis with power in the right upper extremity proximally 3/5 and distally 2/5. Power in the right lower extremity is 3 to 4/5. Plantar is downgoing bilaterally. LABORATORY DATA: Labs review shows WBC 9.2, hemoglobin 13.1, hematocrit 39.4 and platelets of 253. Sodium is 141, potassium 3.8, chloride 106, carbon dioxide 27, BUN of 17, creatinine 0.8 and glucose of 98. His creatine kinase is 213. IMPRESSION: 1. 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 2. Status post altered mental status. 3. Rhabdomyolysis. RECOMMENDATIONS: 1. The patient's creatine kinase has improved to normal range. 2. The patient to be continued on Xarelto for his underlying atrial fibrillation. 3. The patient to have physical as well as occupational therapy. He needs a wrist splint as it appears that the patient has weakness in the dorsiflexion of the right hand. 4. The patient is a good rehabilitation candidate. 5. The patient is showing improvement in the right hemiparesis as well as his mental status is back to baseline. 6. Please continue other treatment and supportive care. Thank you for the opportunity to participate in the care of this patient. Aileen Quijano MD [facility] # [id number]
--- NOTE | 2017-07-22 13:26 | CP.PCM.PN ---
Subjective - Date & Time of Evaluation Date of Evaluation: 07/22/17 Time of Evaluation: 11:30 - Subjective Subjective: Comfortable, not in distress, no fevers. Objective - Vital Signs/Intake and Output Vital Signs (last 24 hours): Temp Pulse Resp BP Pulse Ox 97.9 F 78 20 145/98 H 95 07/22/17 08:11 07/22/17 09:32 07/22/17 08:11 07/22/17 09:32 07/22/17 08:11 Intake and Output: 07/22/17 07/22/17 06:59 18:59 Intake Total 300 Output Total 1100 Balance -800 - Medications Medications: Current Medications Acetaminophen (Tylenol 325mg Tab) 650 mg PO Q4H PRN PRN Reason: Headache Last Admin: 07/20/17 17:50 Dose: 650 mg Amiodarone HCl (Cordarone) 200 mg PO BID [facility] Last Admin: 07/22/17 09:31 Dose: 200 mg Amlodipine Besylate (Norvasc) 5 mg PO DAILY [facility] Last Admin: 07/22/17 09:32 Dose: 5 mg Aspirin (Ecotrin) 81 mg PO DAILY [facility] Last Admin: 07/22/17 09:31 Dose: 81 mg Atorvastatin Calcium (Lipitor) 80 mg PO DIN [facility] Last Admin: 07/21/17 18:08 Dose: 80 mg Lorazepam (Ativan) 0.25 mg PO TID PRN; Protocol PRN Reason: anxiety, restlessness, Last Admin: 07/17/17 21:18 Dose: 0.25 mg Metoprolol Tartrate (Lopressor) 25 mg PO BID [facility] Last Admin: 07/22/17 09:31 Dose: 25 mg Mupirocin (Bactroban Ointment) 0 gm TOP BID [facility] Last Admin: 07/21/17 18:03 Dose: 1 applic Promethazine HCl/Dextromethorphan (Phenergan Dm Syrup) 5 ml PO TID [facility] Stop: 07/30/17 18:01 Last Admin: 07/22/17 09:33 Dose: 5 ml Rivaroxaban (Xarelto) 20 mg PO DIN [facility] PRN Reason: Protocol Last Admin: 07/21/17 18:09 Dose: 20 mg - Labs Labs: 07/22/17 05:50 07/22/17 05:50 PT 16.7 SECONDS (9.4-12.5) H 07/13/17 09:11 INR 1.51 (0.93-1.08) H 07/13/17 09:11 APTT 31.6 Seconds (25.1-36.5) 07/13/17 09:11 - Constitutional Appears: Non-toxic - Head Exam Head Exam: NORMAL INSPECTION - ENT Exam ENT Exam: Mucous Membranes Moist - Neck Exam Neck Exam: absent: Lymphadenopathy, Meningismus - Respiratory Exam Respiratory Exam: Decreased Breath Sounds - Cardiovascular Exam Cardiovascular Exam: +S1, +S2 - GI/Abdominal Exam GI & Abdominal Exam: Soft. absent: Tenderness Assessment and Plan - Assessment and Plan (Free Text) Plan: Assessment Sepsis due to systemic viral illness with Influenza with associated myositis, rhabdomyolysis R/O encephalitis associated with Influenza (although no findings suggestive on MRI of the brain), slowly improving R/O cerebrovascular accident with right sided weakness HTN obesity with BMI 37 history of atrial fibrillation S/P ablation, on anticoagulation Plan S/P 5 days of Tamiflu continue to trend CPK levels (has now normalized) reviewed MRI brain which did not show acute findings - reviewed Neurology recommendations (as per Neuro, may have CVA of area of brainstem) will continue to monitor clinically off antibiotics since he is at risk for infections
[2017-07-22 16:47] VITALS: PULSE 77
--- NOTE | 2017-07-23 06:51 | DS ---
HISTORY OF PRESENT ILLNESS: I saw him resting comfortably in his room with his in the next bed. He slept well. He has had no complaints. He is trying physical therapy. They both want to go back to [place]. I believe [employer] has got them an acute facility in [place]. The next thing is working on transportation with his insurance company. He was on the cruise ship and using cruise ship insurance and is trying He is on Ativan, Bactroban cream, Cordarone, Ecotrin, Lipitor, Lopressor, Norvasc, Phenergan, Seroquel, Tylenol, and Xarelto. PHYSICAL EXAMINATION: VITAL SIGNS: 97.9 temperature, 78 pulse, 145/98 blood pressure, 20 respiratory rate, 95% O2 sat on room air. I will increase his blood pressure medication. ABDOMEN: Head is atraumatic and normocephalic. GENERAL: He is alert and talking, comfortable. states he is back to normal. HEART: Regular rate. LUNGS: Decreased breath sounds, but clear. ABDOMEN: Soft, obese, nontender, positive bowel sounds. EXTREMITIES: The right arm was maybe half swollen, so it was improving. Cannot move the right wrist too well. Everything else was pretty good. LABORATORY DATA: He has 9.2 white count, 13.1 hemoglobin, 39.4 hematocrit with 253 platelets. He has 141 sodium, potassium 3.8, BUN is 17, creatinine 0.8, GFR is greater than 60, sugar is 98, calcium 8.2, total bilirubin is 1.2, AST is 50, ALT is 57, alk phos is 82, and his lactate dehydrogenase is actually normal at 213, total protein is 5.6. ASSESSMENT AND PLAN: He is being seen by Cardiology, Infectious Diseases, Urology, Neurology, Pulmonology. He has had multiple issues and problems while he has been here. Change of mentation is improved. His atrial fibrillation is treated. He has had sepsis. He has hypertension. I am hopeful we can get him transferred to [place] for acute rehab once [employer] and residential case manager can get all arranged. Alejo Mccloud DO [facility]
--- NOTE | 2017-07-23 07:14 | PN ---
SUBJECTIVE: The patient appears comfortable this morning. He is not short of breath at rest. He is awake and alert, conversive. PHYSICAL EXAMINATION: VITAL SIGNS: (Last noted in the computer): Temperature is 97.6, pulse 77, respirations 18/20, blood pressure 115/77. Oxygen saturation on room air is 97%. HEENT: Normocephalic, atraumatic. NECK: No JVD. CARDIOVASCULAR: Systolic ejection murmur at the lower left sternal border. No S3 gallop. LUNGS: Clear bilaterally. EXTREMITIES: Mild edema is noted in both lower extremities. There is no clubbing or cyanosis. The calves are nontender to palpation. There is less edema noted in the right upper extremity. GI: Abdomen is soft, nontender and nondistended. Bowel sounds are positive. SKIN: Healing excoriations on the patient's right arm/leg and right hip. No rashes. NEUROLOGIC: Limited at the present time. IMPRESSION: 1. Rule out cerebrovascular accident. 2. Frequent falls. 3. Rhabdomyolysis. 4. Influenza A positivity. 5. Chronic cardiac arrhythmias. 6. Shortness of breath (intermittent)-resolving. PLAN: The patient appears very comfortable this morning. He is not short of breath at rest. He is awake, alert, and conversive. He does state to feeling much better overall. I did discuss the case with the (at bedside) at length. She also confirms that her is doing very well at the present time. I also reviewed the vital signs for the past 24 hours. There have been no episodes of shortness of breath--documented over the past 24 hours. Inputs by Infectious Disease, Cardiology, and Neurology are noted. Clinical status of the patient is significantly improved. I will discuss the above with Dr. Mccloud. Srini De La Rosa MD [facility]
[2017-07-23 07:47] VITALS: BP 134/86; TEMP 97.7; O2SAT 95
--- NOTE | 2017-07-23 23:32 | PN ---
DATE: 07/23/2017 SUBJECTIVE: The patient is in bed in no acute distress, nontoxic. No fevers. The patient was seen earlier this morning. The patient's at the bedside and they are eager to be discharged. PHYSICAL EXAMINATION: VITAL SIGNS: Temperature is 97, blood pressure is 130/80, respiratory rate of 16. HEENT EXAMINATION: Unremarkable. NECK: Supple. LUNGS: Have decreased breath sound. HEART EXAM: Normal S1 and S2. ABDOMINAL EXAMINATION: Soft, nontender. LABORATORY EXAMINATION: Reveals white count is 9.2, hemoglobin of 13. ASSESSMENT AND PLAN: This is a 71-year-old male who was seen early this morning in room 360, bed 2 with his present at the bedside, who was admitted with sepsis due to influenza associated with myositis and rhabdomyolysis and encephalitis, associated with influenza and with cerebrovascular accident and right-sided weakness. He has completed the Tamiflu. The patient is currently off of antibiotics who needs to be transferred to [place], [place] where his home town is and follow with PMD to be transferred to a rehab facility. Eddie Mckenzie MD
--- NOTE | 2017-07-24 07:10 | DS ---
HISTORY OF PRESENT ILLNESS: He is capable of being discharge today with a nurse in airplane and to [place]. He was from the cruise ship and is from [place] and he is medically stable to fly, I have filled out forms for him. He is on Ativan, Bactroban cream, Cordarone, Ecotrin, Lipitor, Lopressor, Norvasc, Phenergan as needed, Tylenol and Xarelto. PHYSICAL EXAMINATION: VITAL SIGNS: 97.6 temperature, 77 pulse, 115/77 blood pressure, 20 respiratory rate and 97% O2 sat on room air. GENERAL: He is alert. He is oriented. He is comfortable. The is with him, she states he is really doing much better mentally, just needs physical therapy. HEENT: Head is atraumatic and normocephalic. HEART: Regular rate. LUNGS: Decreased breath sounds, but clear. ABDOMEN: Soft, obese, nontender, positive bowel sounds. EXTREMITIES: Trace edema. Right arm is little bit of edematous, but improving. LABORATORY DATA: He has a 9.2 white count yesterday and 253 platelets, with 13.1 hemoglobin. His chemistry yesterday with 141 sodium, potassium 3.8, BUN 17, creatinine 0.8, GFR is greater than 60, sugar is 98, AST is 50, ALT is 57, alkaline phosphatase 82, his total creatine kinase came back to normal This is the best I have seen him, best I have heard him, he is very much improved. He went through influenza. He went through weakness, fall, syncope, rhabdomyolysis, myositis, possibly encephalitis, hypertension, history of AFib. So, he did well, he will be sent back to [place] for acute rehab. Answered the questions. I think, he did quite well here. Alejo Mccloud DO [facility]
== END 2017-07-23 13:24 | disposition home or self-care (01) | DRG 64 ==
LOC: ED 08:23 → ERH 11:10 → CCU 12:38 → 2RSO 07-15 22:19 → 3RNO 07-18 14:48
PROVIDERS: ADMIT Family Medicine; ATTEND Family Medicine
DX: I63.9 Cerebral infarction, unspecified (principal); A41.89 Other specified sepsis; G04.90 Encephalitis and encephalomyelitis, unspecified; G81.91 Hemiplegia, unspecified affecting right dominant side; M62.82 Rhabdomyolysis; F05 Delirium due to known physiological condition; J10.1 Influenza due to other identified influenza virus with other respiratory manifestations; F03.90 Unspecified dementia, unspecified severity, without behavioral disturbance, psychotic disturbance, mood disturbance, and anxiety; R29.713 NIHSS score 13; I11.0 Hypertensive heart disease with heart failure; I50.9 Heart failure, unspecified; I48.0 Paroxysmal atrial fibrillation; E66.9 Obesity, unspecified; R29.6 Repeated falls; I48.2 Chronic atrial fibrillation; M60.9 Myositis, unspecified; I25.10 Atherosclerotic heart disease of native coronary artery without angina pectoris; M48.02 Spinal stenosis, cervical region; I65.23 Occlusion and stenosis of bilateral carotid arteries; R47.1 Dysarthria and anarthria; R31.9 Hematuria, unspecified; Y84.6 Urinary catheterization as the cause of abnormal reaction of the patient, or of later complication, without mention of misadventure at the time of the procedure; Z79.01 Long term (current) use of anticoagulants; Z68.37 Body mass index [BMI] 37.0-37.9, adult